=== PATIENT | male | born 1940 | race Caucasian/White ===

== ENCOUNTER → 2023-12-12 | Outpatient (CLI) | payer MEDICARE ==
--- NOTE | 2023-12-12 12:11 | FL ---
COMPARISON: NONE DATE OF EXAM: 12/12/2023 HISTORY: Dysphasia A number of thin and thick substances were ingested under the care of the department of speech pathol ogy. There is penetration and aspiration upon ingestion of thin barium. Cough reflex noted. Vallecul ar pooling and residuals noted. 2 minutes 1 second of fluoroscopy. No images submitted. IMPRESSION: 1. Penetration and aspiration thin barium.
== END | disposition home or self-care (01) ==
LOC: RADFLMAIN 10:19
PROVIDERS: ATTEND Internal Medicine Critical Care Medicine
DX: R13.12 Dysphagia, oropharyngeal phase (principal)
CPT/HCPCS: 74230

== ENCOUNTER 2024-02-06 23:33 | Inpatient (IN) | payer MEDICARE ==
--- NOTE | 2024-02-07 00:06 | ED ---
General Adult HPI - General Chief complaint: Weakness Stated complaint: Infection, UTI symptoms Time Seen by Provider: 02/07/24 00:03 Source: patient, EMS Mode of arrival: EMS Limitations: no limitations - History of Present Illness Initial comments: Ronaldo is a pleasant 83-year-old male who presents the ER today for evaluation of generalized weakness. Patient was seen by urology in office today they attempted a procedure but were unable to pass stool through his urethra so he is scheduled for the procedure under anesthesia in March. Patient states that he felt fine at the appointment but upon returning home he developed shaking chills was worried he had a fever and had overall generalized weakness. This prompted him to come to the hospital for evaluation. - Related Data Allergies Allergy/AdvReac Type Severity Reaction Status Date / Time No Known Allergies Allergy Verified 02/06/24 23:44 Review of Systems ROS Statement: Those systems with pertinent positive or pertinent negative responses have been documented in the HPI. ROS Other: All systems not noted in ROS Statement are negative. Past Medical History Past Medical History: No Reported History History of Any Multi-Drug Resistant Organisms: None Reported Past Surgical History: Orthopedic Surgery Past Psychological History: No Psychological Hx Reported Smoking Status: Former smoker Past Alcohol Use History: None Reported Past Drug Use History: None Reported General Exam - General Exam Comments Initial Comments: Physical Exam GENERAL: Patient is well-developed and well-nourished, patient appears acutely ill HENT: Normocephalic, Atraumatic. EYES: PERRL, EOMI PULMONARY: Unlabored respirations CARDIOVASCULAR: Regular, warm and well-perfused extremities ABDOMEN: Soft and nontender with normal bowel sounds. SKIN: Skin is clear with no lesions or rashes and otherwise unremarkable. : Deferred NEUROLOGIC: Patient is alert and oriented x3. Moving all extremities spontaneously MUSCULOSKELETAL: Normal extremities PSYCHIATRIC: Normal psychiatric evaluation. Limitations: no limitations Course Vital Signs 02/06/24 02/07/24 23:40 03:42 Temperature 98.2 F Pulse Rate 51 L 78 Respiratory 16 16 Rate Blood Pressure 116/61 105/49 O2 Sat by Pulse 95 92 L Oximetry EKG Findings - EKG Comments: EKG Findings:: EKG interpreted by me, EKG obtained due to hypokalemia, EKG obtained at 311 rate is 84 rhythm is sinus with PVCs noted, first-degree AV block with a SC of 206, QRS 131, QTc 466, no acute ST elevations or depressions no evidence of acute ischemia or infarction Medical Decision Making - Medical Decision Making Was pt. sent in by a medical professional or institution ([facility] Paul, [facility], urgent care, hospital, or snf...) When possible be specific @ -No Did you speak to anyone other than the patient for history (EMS, parent, family, police, friend...)? What history was obtained from this source @ -No Did you review nursing and triage notes (agree or disagree)? Why? @ -I reviewed and agree with nursing and triage notes Were old charts reviewed (outside hosp., previous admission, EMS record, old EKG, old radiological studies, urgent care reports/EKG's, snf records)? Report findings @ -No previous labs available for comparison Differential Diagnosis (chest pain, altered mental status, abdominal pain women, abdominal pain men, vaginal bleeding, weakness, fever, dyspnea, syncope, headache, dizziness, GI bleed, back pain, seizure, CVA, palpatations, mental health)? @ -Differential Weakness: Hypoglycemia, shock, sepsis, hyponatremia, anemia, infection, OH, ETOH, adverse medicine reaction, overdose, stroke, this is not meant to be an all-inclusive list. EKG interpreted by me (3pts min.). @ -As above X-rays interpreted by me (1pt min.). @ -None done CT interpreted by me (1pt min.). @ -None done U/S interpreted by me (1pt. min.). @ -None done What testing was considered but not performed or refused? (CT, X-rays, U/S, labs)? Why? @ -None What meds were considered but not given or refused? Why? @ -None Did you discuss the management of the patient with other professionals (professionals i.e. [facility] Paul, [employer], lab, RT, psych nurse, social science analyst, waste chopper, teacher, surveillance sensor officer, immigration case manager)? Give summary @ -No Was smoking cessation discussed for >3mins.? @ -No Was critical care preformed (if so, how long)? @ -No Were there social determinants of health that impacted care today? How? (Homelessness, low income, unemployed, alcoholism, drug addiction, transportation, low edu. Level, literacy, decrease access to med. care, [place] [facility], rehab)? @ -No Was there de-escalation of care discussed even if they declined (Discuss DNR or withdrawal of care, Hospice)? DNR status @ -Yes, confirmed DNR status What co-morbidities impacted this encounter? (DM, HTN, Smoking, COPD, CAD, Cancer, CVA, ARF, Chemo, Hep., AIDS, mental health diagnosis, sleep apnea, morbid obesity)? @ -None Was patient admitted / discharged? Hospital course, mention meds given and route, prescriptions, significant lab abnormalities, going to OR and other pertinent info. @ -Admit Patient was seen and evaluated, history was obtained from the patient. Elderly male is febrile feeling unwell generalized weakness. Labs were obtained and resulted with critical hyponatremia, hypokalemia. IV fluids and IV and oral potassium replacement were ordered. EKG was obtained there is some wide QRS but no other acute findings. Patient will remain on cardiac monitoring. Undiagnosed new problem with uncertain prognosis? @ -No Drug Therapy requiring intensive monitoring for toxicity (Heparin, Nitro, Insulin, Cardizem)? @ -IV potassium Were any procedures done? @ -No Diagnosis/symptom? @ -Hyponatremia, hypokalemia Acute, or Chronic, or Acute on Chronic? @ -Assumed to be acute Uncomplicated (without systemic symptoms) or Complicated (systemic symptoms)? @ -Default Side effects of treatment? @ -No Exacerbation, Progression, or Severe Exacerbation? @ -No Poses a threat to life or bodily function? How? (Chest pain, [place], OH, pneumonia, PE, COPD, DKA, ARF, appy, cholecystitis, CVA, Diverticulitis, Homicidal, Suicidal, threat to staff... and all critical care pts) @ -Potentially, hypokalemia can result in arrhythmia - Lab Data Result diagrams: 02/07/24 01:32 02/07/24 01:32 Lab Results 02/07/24 02/07/24 02/07/24 Range/Units 01:32 01:32 01:32 WBC 10.9 H (3.8-10.6) k/uL RBC 3.72 L (4.30-5.90) m/uL Hgb 11.7 L (13.0-17.5) gm/dL Hct 34.2 L (39.0-53.0) % MCV 91.8 (80.0-100.0) fL MCH 31.5 (25.0-35.0) pg MCHC 34.3 (31.0-37.0) g/dL RDW 12.9 (11.5-15.5) % Plt Count 151 (150-450) k/uL MPV 8.3 Neutrophils % 86 % Lymphocytes % 6 % Monocytes % 5 % Eosinophils % 2 % Basophils % 0 % Neutrophils # 9.4 H (1.3-7.7) k/uL Lymphocytes # 0.6 L (1.0-4.8) k/uL Monocytes # 0.5 (0-1.0) k/uL Eosinophils # 0.3 (0-0.7) k/uL Basophils # 0.0 (0-0.2) k/uL Sodium 127 L (137-145) mmol/L Potassium 2.8 L (3.5-5.1) mmol/L Chloride 97 L (98-107) mmol/L Carbon Dioxide 25 (22-30) mmol/L Anion Gap 5 mmol/L BUN 30 H (9-20) mg/dL Creatinine 0.41 L (0.66-1.25) mg/dL Est GFR (CKD-EPI)AfAm >90 (>60 ml/min/1.73 sqM) Est GFR (CKD-EPI)NonAf >90 (>60 ml/min/1.73 sqM) Glucose 93 (74-99) mg/dL Plasma Lactic Acid Taras 0.8 (0.7-2.0) mmol/L Calcium 8.2 L (8.4-10.2) mg/dL Total Bilirubin 0.5 (0.2-1.3) mg/dL AST 24 (17-59) U/L ALT 14 (4-49) U/L Alkaline Phosphatase 86 (38-126) U/L Total Protein 6.0 L (6.3-8.2) g/dL Albumin 3.5 (3.5-5.0) g/dL Urine Color Urine Appearance (Clear) Urine pH (5.0-8.0) Ur Specific [place] (1.001-1.035) Urine Protein (Negative) Urine Glucose (UA) (Negative) Urine Ketones (Negative) Urine Blood (Negative) Urine Nitrite (Negative) Urine Bilirubin (Negative) Urine Urobilinogen (<2.0) mg/dL Ur Leukocyte Esterase (Negative) Urine RBC (0-5) /hpf Urine WBC (0-5) /hpf Urine Bacteria (None) /hpf Urine Mucus (None) /hpf 02/07/24 Range/Units 02:00 WBC (3.8-10.6) k/uL RBC (4.30-5.90) m/uL Hgb (13.0-17.5) gm/dL Hct (39.0-53.0) % MCV (80.0-100.0) fL MCH (25.0-35.0) pg MCHC (31.0-37.0) g/dL RDW (11.5-15.5) % Plt Count (150-450) k/uL MPV Neutrophils % % Lymphocytes % % Monocytes % % Eosinophils % % Basophils % % Neutrophils # (1.3-7.7) k/uL Lymphocytes # (1.0-4.8) k/uL Monocytes # (0-1.0) k/uL Eosinophils # (0-0.7) k/uL Basophils # (0-0.2) k/uL Sodium (137-145) mmol/L Potassium (3.5-5.1) mmol/L Chloride (98-107) mmol/L Carbon Dioxide (22-30) mmol/L Anion Gap mmol/L BUN (9-20) mg/dL Creatinine (0.66-1.25) mg/dL Est GFR (CKD-EPI)AfAm (>60 ml/min/1.73 sqM) Est GFR (CKD-EPI)NonAf (>60 ml/min/1.73 sqM) Glucose (74-99) mg/dL Plasma Lactic Acid Taras (0.7-2.0) mmol/L Calcium (8.4-10.2) mg/dL Total Bilirubin (0.2-1.3) mg/dL AST (17-59) U/L ALT (4-49) U/L Alkaline Phosphatase (38-126) U/L Total Protein (6.3-8.2) g/dL Albumin (3.5-5.0) g/dL Urine Color Light Yellow Urine Appearance Clear (Clear) Urine pH 5.5 (5.0-8.0) Ur Specific [place] 1.021 (1.001-1.035) Urine Protein Negative (Negative) Urine Glucose (UA) Negative (Negative) Urine Ketones Negative (Negative) Urine Blood Moderate H (Negative) Urine Nitrite Negative (Negative) Urine Bilirubin Negative (Negative) Urine Urobilinogen <2.0 (<2.0) mg/dL Ur Leukocyte Esterase Moderate H (Negative) Urine RBC 85 H (0-5) /hpf Urine WBC 32 H (0-5) /hpf Urine Bacteria Many H (None) /hpf Urine Mucus Rare H (None) /hpf Disposition Clinical Impression: Hypokalemia, Hyponatremia, UTI (urinary tract infection) Disposition: ADMITTED IP TO THIS HOSP Condition: Serious Is patient prescribed a controlled substance at d/c from ED?: No Referrals: Kelvin Mcnally MD [Primary Care Provider] - 1-2 days
[2024-02-07] MEDS: SODIUM CHLORIDE 0.9% 500 ML 500 ML IV SCH (01:36)
[2024-02-07] MEDS: .ACETAMINOPHEN IV (PEDS) 1,000 MG in EMPTY BAG 1 BAG IVPB ONE (01:36)
[2024-02-07 01:43] LABS: Basophils % (A) 0 %; Eosinophils # (A) 0.3 k/uL (0-0.7); Eosinophils % (A) 2 %; HCT 34.2 % (39.0-53.0); HGB 11.7 gm/dL (13.0-17.5); Lymphocytes # (A) 0.6 k/uL (1.0-4.8); Lymphocytes % (A) 6 %; MCH 31.5 pg (25.0-35.0); MCHC 34.3 g/dL (31.0-37.0); MCV 91.8 fL (80.0-100.0); Mean Platelet Volume 8.3; Monocytes # (A) 0.5 k/uL (0-1.0); Monocytes % (A) 5 %; Neutrophils # (A) 9.4 k/uL (1.3-7.7); Neutrophils % (A) 86 %; Platelet Count 151 k/uL (150-450); RBC 3.72 m/uL (4.30-5.90); RDW 12.9 % (11.5-15.5); WBC 10.9 k/uL (3.8-10.6)
[2024-02-07 01:54] LABS: ALT 14 U/L (4-49); AST 24 U/L (17-59); African American GFR (CKD) >90 (>60 ml/min/1.73 sqM); Albumin 3.5 g/dL (3.5-5.0); Alkaline Phosphatase 86 U/L (38-126); Anion Gap 5 mmol/L; Blood Urea Nitrogen 30 mg/dL (9-20); Calcium 8.2 mg/dL (8.4-10.2); Carbon Dioxide 25 mmol/L (22-30); Chloride 97 mmol/L (98-107); Glucose 93 mg/dL (74-99); Non-African American GFR(CKD) >90 (>60 ml/min/1.73 sqM); Potassium 2.8 mmol/L (3.5-5.1); Sodium 127 mmol/L (137-145); Total Bilirubin 0.5 mg/dL (0.2-1.3)
[2024-02-07 02:23] LABS: Appearance,Urine Clear (Clear); Bacteria,Urine Many /hpf; Bilirubin,Urine Negative (Negative); Blood,Urine Moderate (Negative); Color,Urine Light Yellow; Glucose,Urine (UA) Negative (Negative); Ketones,Urine Negative (Negative); Leukocyte Esterase,Urine Moderate (Negative); Mucus,Urine Rare /hpf; Nitrite,Urine Negative (Negative); PH, Urine 5.5 (5.0-8.0); Protein,Urine Negative (Negative); RBC,Urine 85 /hpf (0-5); Specific Gravity,Urine 1.021 (1.001-1.035); Urobilinogen,Urine <2.0 mg/dL (<2.0); WBC,Urine 32 /hpf (0-5)
[2024-02-07] MEDS ORDERED: NALOXONE 0.4 MG/ML 1 ML VIAL IV PRN (02:34)
[2024-02-07] MEDS: POTASSIUM CHLORIDE ER 20 MEQ TAB.ER PO STA (03:11)
[2024-02-07] MEDS: POTASSIUM CHLORIDE 20 MEQ in WATER FOR INJECTION 1 100ML.BAG IVPB SCH (03:16)
[2024-02-07] MEDS: SODIUM CHLORIDE 0.9% 1,000 ML IV SCH (03:22)
[2024-02-07 09:58] LABS: African American GFR (CKD) >90 (>60 ml/min/1.73 sqM); Anion Gap 4 mmol/L; Blood Urea Nitrogen 23 mg/dL (9-20); Calcium 8.1 mg/dL (8.4-10.2); Carbon Dioxide 25 mmol/L (22-30); Chloride 101 mmol/L (98-107); Glucose 101 mg/dL (74-99); Non-African American GFR(CKD) >90 (>60 ml/min/1.73 sqM); Sodium 130 mmol/L (137-145)
[2024-02-07] MEDS ORDERED: CALCIUM CARBONATE 500 MG CHEWABLE PO PRN (10:06)
[2024-02-07] MEDS ORDERED: ALPRAZolam 0.25 MG TAB PO PRN (10:06)
[2024-02-07] MEDS ORDERED: MELATONIN 3 MG TABLET PO PRN (10:06)
[2024-02-07] MEDS ORDERED: LACTULOSE 20 GM/30 ML CUP PO PRN (10:06)
[2024-02-07] MEDS ORDERED: ONDANSETRON 4 MG/2 ML VIAL IVP PRN (10:06)
--- NOTE | 2024-02-07 10:40 | P.NPCON ---
History of Present Illness - Reason for Consult hyponatremia - History of Present Illness Reason for consultation: Electrolyte imbalance History of present illness: Patient is 83-year-old male seen in renal consultation for electrolyte imbalance. Patient states he went for a urologic procedure yesterday but the procedure was canceled and has been rescheduled later in the summer. Patient states the could not pass the scope through his penis so he will undergo the procedure under general anesthesia. Patient went home after the procedure and states he developed chills. Patient states he also felt that he had a high fever. Patient states that he went to the bathroom at night and his legs gave out and came to the hospital for further care. Patient states he follows with a dietitian and is maintained on a thickened diet to prevent aspiration. Sodium level on admission was 127 and potassium level 2.8. He is currently receiving IV fluids. Potassium level is normal and sodium level is up to 130. He denies chest pain or shortness of breath. No vomiting. Patient states he did have loose bowel movements yesterday but now resolved. He denies gross hematuria or dysuria. Afebrile this admission. Denies use of nonsteroidals. Denies family history of renal disease. Denies history of coronary artery disease. Denies history of diabetes. Vital signs are stable. General: No acute distress. HEENT: Head exam is unremarkable. LUNGS: No audible rhonchi or wheezes. HEART: Rate and Rhythm are regular. ABDOMEN: Nontender. EXTREMITITES: No edema. Past Medical History Past Medical History: GERD/Reflux, Hyperlipidemia, Hypertension History of Any Multi-Drug Resistant Organisms: None Reported Past Surgical History: Orthopedic Surgery Additional Past Surgical History / Comment(s): femur replaced with diana. Past Anesthesia/Blood Transfusion Reactions: No Reported Reaction Past Psychological History: No Psychological Hx Reported Smoking Status: Former smoker Past Alcohol Use History: None Reported Past Drug Use History: None Reported Medications and Allergies Home Medications Medication Instructions Recorded Confirmed Type Aspirin 81 mg PO DAILY 02/07/24 02/07/24 History Ciprofloxacin HCl [Cipro] 250 mg PO DIRECTED 02/07/24 02/07/24 History DULoxetine HCL [Cymbalta] 60 mg PO DAILY 02/07/24 02/07/24 History Famotidine [Pepcid] 20 mg PO BID 02/07/24 02/07/24 History Glucosamine-Chondroitin 750-600mg 1 tab PO DAILY 02/07/24 02/07/24 History Loratadine [Claritin] 10 mg PO DAILY 02/07/24 02/07/24 History Losartan/Hydrochlorothiazide 1 tab PO DAILY 02/07/24 02/07/24 History [Losartan-Hctz 100-25 mg Tab] Olopatadine HCl [Patanol 0.1%] 1 drop BOTH EYES BID 02/07/24 02/07/24 History Omeprazole 20 mg PO DAILY 02/07/24 02/07/24 History Simvastatin [Zocor] 20 mg PO DAILY 02/07/24 02/07/24 History Tamsulosin [Flomax] 0.4 mg PO DAILY 02/07/24 02/07/24 History Total Restore Gut Health Supplement 2 cap PO DAILY 02/07/24 02/07/24 History amLODIPine [Norvasc] 10 mg PO DAILY 02/07/24 02/07/24 History guaiFENesin [Mucinex] 1,200 mg PO BID 02/07/24 02/07/24 History Allergies Allergy/AdvReac Type Severity Reaction Status Date / Time No Known Allergies Allergy Verified 02/07/24 09:54 Physical Exam Vitals: Vital Signs Temp Pulse Pulse Resp BP BP Pulse Ox 02/07/24 06:59 97.9 F 84 16 138/68 96 02/07/24 05:34 97.4 F L 78 16 127/65 99 02/07/24 04:59 78 19 102/50 98 02/07/24 03:42 78 16 105/49 92 L 02/06/24 23:40 98.2 F 51 L 16 116/61 95 Intake and Output 02/06/24 02/07/24 02/07/24 22:59 06:59 14:59 Output Total 625 Balance -625 Output: Urine 625 Other: Voiding Method Toilet Toilet Urinal Urinal Diaper Diaper Weight 83.461 kg Results - Lab Results Most recent lab results Calcium 8.1 mg/dL (8.4-10.2) L 02/07/24 09:11 Magnesium 2.0 mg/dL (1.6-2.3) 02/07/24 09:11 02/07/24 01:32 02/07/24 09:11 Assessment and Plan Plan: Assessment: 1. Hypovolemic hyponatremia improved with IV hydration. Sodium level 130 today. 2. Hypokalemia from poor intake. Magnesium normal. Replaced. Better. 3. Benign hypertension. Controlled. Plan: Maintain IV fluids. Encouraged oral intake. Thank you for the consultation. I will continue to follow the patient with you during his hospital stay.
[2024-02-07] MEDS: DULoxetine HCL 60 MG CAPSULE.DR PO SCH (10:42)
[2024-02-07] MEDS: ATORVASTATIN 10 MG TAB PO SCH (10:42)
[2024-02-07] MEDS: LOSARTAN 50 MG TAB PO SCH (10:42)
[2024-02-07] MEDS: ASPIRIN 81 MG PO SCH (10:42)
[2024-02-07] MEDS: PANTOPRAZOLE 40 MG TABLET PO SCH (10:42)
[2024-02-07] MEDS: FAMOTIDINE 20 MG TAB PO SCH (10:42)
[2024-02-07] MEDS: TAMSULOSIN 0.4 MG CAP.ER.24H PO SCH (10:42)
[2024-02-07] MEDS: KETOTIFEN 0.025% OPHTH DROPS 5 ML BTL BOTH EYES SCH (12:52)
--- NOTE | 2024-02-07 19:52 | P.HPIM ---
History of Present Illness H&P Date: 02/07/24 Chief Complaint: Fever chills weakness This is a pleasant 83-year-old patient, follows with Dr. Kelvin Mcnally. Chronic stable medical conditions include GERD, hyperlipidemia, hypertension. Patient has a long history of urine being uncontrolled. Yesterday is gone down to see his urologist. Apparently patient is undergoing cystoscopy. But because of scar tissue really could not get through. Patient went home later. Feels feeling okay. In the evening started really shaking shivering fevers felt cold and very weak. To the point he required his to take him to the bathroom. He was so weak that he had to be laid down on the floor. Was unable to get up. Finally decided to come in. Patient was found to elevated white count. Low sodium. Admitted. Was given IV ceftriaxone. This morning patient does feel tired. Blood pressure activities on the lower side. Review of systems: GEN.: Tired EYES: None HEENT: None NECK: None RESPIRATORY: None CARDIOVASCULAR: None GASTROINTESTINAL: None GENITOURINARY: As above e MUSCULOSKELETAL: None LYMPHATICS: None HEMATOLOGICAL: At home uses a cane. When he goes outside sometimes uses a walker PSYCHIATRY: None INVESTIGATIONS, reviewed in the clinical context: February 07, 2024: Sodium 120 potassium 4 BUN 23 creatinine 0.38 February 06, 2024: White count 10.9 hemoglobin 9.7 platelets 151 sodium 127 potassium 2.8 BUN 30 creatinine 0.41 UA: Positive for blood leukoesterase RBC WBC bacteria many EKG tracing personally reviewed by me-normal sinus rhythm. Poor R wave progression. PVC. Nonspecific T wave changes. Assessment and plan: -Probable sepsis. From UTI Patient had attempted procedure for cystoscopy. But the catheter could not go past through his penis. Likely DVT started having fever chills very weak to the point patient not get up had to lie down on the floor. Was given IV ceftriaxone in the ER and IV fluids. Has elevated white count. -Acute UTI secondary to instrumentation/cystoscopy, outpatient procedure IV ceftriaxone. 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 Sometimes walker. -Depression Cymbalta -GERD Omeprazole -Hyperlipidemia Zocor 20 mg -Essential hypertension. Relatively patient's blood pressure running on the lower side. Because of infection. Patient's amlodipine has been held. Will use Cozaar at a reduced dose. Hold hydrochlorothiazide -Primary osteoarthritis Tylenol as needed -DNR Care was discussed with the patient. Questions answered. Past Medical History Past Medical History: GERD/Reflux, Hyperlipidemia, Hypertension History of Any Multi-Drug Resistant Organisms: None Reported Past Surgical History: Orthopedic Surgery Additional Past Surgical History / Comment(s): femur replaced with diana. Past Anesthesia/Blood Transfusion Reactions: No Reported Reaction Past Psychological History: No Psychological Hx Reported Smoking Status: Former smoker Past Alcohol Use History: None Reported Past Drug Use History: None Reported Medications and Allergies Home Medications Medication Instructions Recorded Confirmed Type Aspirin 81 mg PO DAILY 02/07/24 02/07/24 History Ciprofloxacin HCl [Cipro] 250 mg PO DIRECTED 02/07/24 02/07/24 History DULoxetine HCL [Cymbalta] 60 mg PO DAILY 02/07/24 02/07/24 History Famotidine [Pepcid] 20 mg PO BID 02/07/24 02/07/24 History Glucosamine-Chondroitin 750-600mg 1 tab PO DAILY 02/07/24 02/07/24 History Loratadine [Claritin] 10 mg PO DAILY 02/07/24 02/07/24 History Losartan/Hydrochlorothiazide 1 tab PO DAILY 02/07/24 02/07/24 History [Losartan-Hctz 100-25 mg Tab] Olopatadine HCl [Patanol 0.1%] 1 drop BOTH EYES BID 02/07/24 02/07/24 History Omeprazole 20 mg PO DAILY 02/07/24 02/07/24 History Simvastatin [Zocor] 20 mg PO DAILY 02/07/24 02/07/24 History Tamsulosin [Flomax] 0.4 mg PO DAILY 02/07/24 02/07/24 History Total Restore Gut Health Supplement 2 cap PO DAILY 02/07/24 02/07/24 History amLODIPine [Norvasc] 10 mg PO DAILY 02/07/24 02/07/24 History guaiFENesin [Mucinex] 1,200 mg PO BID 02/07/24 02/07/24 History Allergies Allergy/AdvReac Type Severity Reaction Status Date / Time No Known Allergies Allergy Verified 02/07/24 09:54 Physical Exam Vitals: Vital Signs Temp Pulse Pulse Resp BP BP Pulse Ox 02/07/24 06:59 97.9 F 84 16 138/68 96 02/07/24 05:34 97.4 F L 78 16 127/65 99 02/07/24 04:59 78 19 102/50 98 02/07/24 03:42 78 16 105/49 92 L 02/06/24 23:40 98.2 F 51 L 16 116/61 95 Intake and Output 02/06/24 02/07/24 02/07/24 22:59 06:59 14:59 Output Total 200 Balance -200 Output: Urine 200 Other: Voiding Method Toilet Urinal Diaper Weight 83.461 kg Results CBC & Chem 7: 02/07/24 01:32 02/07/24 09:11 Labs: Abnormal Lab Results - Last 24 Hours (Table) 02/07/24 02/07/24 02/07/24 Range/Units 01:32 01:32 02:00 WBC 10.9 H (3.8-10.6) k/uL RBC 3.72 L (4.30-5.90) m/uL Hgb 11.7 L (13.0-17.5) gm/dL Hct 34.2 L (39.0-53.0) % Neutrophils # 9.4 H (1.3-7.7) k/uL Lymphocytes # 0.6 L (1.0-4.8) k/uL Sodium 127 L (137-145) mmol/L Potassium 2.8 L (3.5-5.1) mmol/L Chloride 97 L (98-107) mmol/L BUN 30 H (9-20) mg/dL Creatinine 0.41 L (0.66-1.25) mg/dL Calcium 8.2 L (8.4-10.2) mg/dL Total Protein 6.0 L (6.3-8.2) g/dL Urine Blood Moderate H (Negative) Ur Leukocyte Esterase Moderate H (Negative) Urine RBC 85 H (0-5) /hpf Urine WBC 32 H (0-5) /hpf Urine Bacteria Many H (None) /hpf Urine Mucus Rare H (None) /hpf Thrombosis Risk Factor Assmnt - Choose All That Apply Any of the Below Risk Factors Present?: No Other Risk Factors: Yes Each Risk Factor Represents 3 Points: Age 75 years or older Other congenital or acquired thrombophilia - If yes, enter type in comment: No Thrombosis Risk Factor Assessment Total Risk Factor Score: 3 Thrombosis Risk Factor Assessment Level: Moderate Risk
[2024-02-07] MEDS: LACTATED RINGERS 1,000 ML IV SCH (21:57)
[2024-02-08 07:37] LABS: Basophils % (A) 0 %; Eosinophils # (A) 0.3 k/uL (0-0.7); Eosinophils % (A) 5 %; HCT 35.9 % (39.0-53.0); HGB 11.5 gm/dL (13.0-17.5); Lymphocytes # (A) 1.3 k/uL (1.0-4.8); Lymphocytes % (A) 19 %; MCH 30.4 pg (25.0-35.0); MCV 94.9 fL (80.0-100.0); Mean Platelet Volume 8.3; Monocytes # (A) 0.5 k/uL (0-1.0); Monocytes % (A) 7 %; Neutrophils # (A) 4.5 k/uL (1.3-7.7); Neutrophils % (A) 66 %; Platelet Count 151 k/uL (150-450); RBC 3.78 m/uL (4.30-5.90); RDW 12.9 % (11.5-15.5); WBC 6.9 k/uL (3.8-10.6)
[2024-02-08 08:06] LABS: ALT 13 U/L (4-49); AST 26 U/L (17-59); African American GFR (CKD) >90 (>60 ml/min/1.73 sqM); Albumin 3.2 g/dL (3.5-5.0); Albumin/Globulin Ratio 1.2; Alkaline Phosphatase 58 U/L (38-126); Anion Gap 1 mmol/L; Blood Urea Nitrogen 12 mg/dL (9-20); Calcium 8.2 mg/dL (8.4-10.2); Carbon Dioxide 29 mmol/L (22-30); Chloride 99 mmol/L (98-107); Globulin 2.6 g/dL; Glucose 84 mg/dL (74-99); Non-African American GFR(CKD) >90 (>60 ml/min/1.73 sqM); Potassium 4.3 mmol/L (3.5-5.1); Sodium 129 mmol/L (137-145); Total Bilirubin 0.4 mg/dL (0.2-1.3); Total Protein 5.8 g/dL (6.3-8.2)
--- NOTE | 2024-02-08 11:55 | P.PN ---
Subjective Patient is seen in follow-up for electrolyte imbalance. Sodium level 129 potassium level normal. Tolerating oral intake. No vomiting. Vital signs are stable. General: No acute distress. HEENT: Head exam is unremarkable. LUNGS: No audible rhonchi or wheezes. HEART: Rate and Rhythm are regular. ABDOMEN: Nontender. EXTREMITITES: No edema. Objective - Vital Signs Vital signs: Vital Signs Temp 98.0 F 02/08/24 07:46 Pulse 68 02/08/24 07:46 Resp 17 02/08/24 07:46 BP 144/68 02/08/24 07:46 Pulse Ox 95 02/08/24 07:46 FiO2 Intake & Output 02/07/24 02/08/24 02/08/24 18:59 06:59 18:59 Intake Total 1460 Output Total 1050 1300 350 Balance 410 -1300 -350 Intake: Intake, IV Titration 1100 Amount Potassium Chloride 20 meq 200 In Water For Injection 1 100ml.bag @ 50 mls/hr IVPB Q2H ISMAEL Rx#: [id number] Sodium Chloride 0.9% 1, 900 000 ml @ 75 mls/hr IV . [id number] ISMAEL Rx#:[id number] Oral 360 Output: Urine 1050 1300 350 Other: Voiding Method Toilet Toilet Urinal Urinal Urinal Diaper Diaper Diaper # Voids 3 1 # Bowel Movements 1 - Labs CBC & Chem 7: 02/08/24 06:52 02/08/24 06:52 Labs: Abnormal Lab Results - Last 24 Hours (Table) 02/08/24 02/08/24 Range/Units 06:52 06:52 RBC 3.78 L (4.30-5.90) m/uL Hgb 11.5 L (13.0-17.5) gm/dL Hct 35.9 L (39.0-53.0) % Sodium 129 L (137-145) mmol/L Creatinine 0.34 L (0.66-1.25) mg/dL Calcium 8.2 L (8.4-10.2) mg/dL Total Protein 5.8 L (6.3-8.2) g/dL Albumin 3.2 L (3.5-5.0) g/dL Microbiology - Last 24 Hours (Table) 02/07/24 02:00 Urine Culture - Preliminary Urine,Voided Gram Neg Bacilli 02/07/24 00:55 Blood Culture Gram Stain - Preliminary Blood Blood Culture - Preliminary Molecular ID Assessment and Plan Plan: Assessment: 1. Hypovolemic hyponatremia improved with IV hydration. Sodium level fairly stable at 129. 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 2. Hypokalemia from poor intake. Magnesium normal. Replaced. Better. 3. Benign hypertension. Stable. 4. Gram-negative UTI and bacteremia on IV antibiotics. Plan: Hep-Lock IV fluids. Encouraged oral intake. Maintain fluid restriction. Sodium chloride tab 1 dose today. Check serum and urine osmolality, urine sodium level and TSH. Consider infectious disease evaluation.
[2024-02-08] MEDS: SODIUM CHLORIDE TAB 1 GM TAB PO STA (12:47)
[2024-02-08 14:55] LABS: Magnesium 1.9 mg/dL (1.6-2.3)
--- NOTE | 2024-02-08 16:04 | P.PN ---
Progress Note - Text Progress Note Date: 02/08/24 Chief Complaint: Fever chills weakness This is a pleasant 83-year-old patient, follows with Dr. Kelvin Mcnally. Chronic stable medical conditions include GERD, hyperlipidemia, hypertension. Patient has a long history of urine being uncontrolled. Yesterday is gone down to see his urologist. Apparently patient is undergoing cystoscopy. But because of scar tissue really could not get through. Patient went home later. Feels feeling okay. In the evening started really shaking shivering fevers felt cold and very weak. To the point he required his to take him to the bathroom. He was so weak that he had to be laid down on the floor. Was unable to get up. Finally decided to come in. Patient was found to elevated white count. Low sodium. Admitted. Was given IV ceftriaxone. This morning patient does feel tired. Blood pressure activities on the lower side. February 08, 2024: Feeling better. No fever no chills. Eating better. Blood blood culture and urine have come back to be positive. Blood pressure better. Continue with IV ceftriaxone. Active Medications Acetaminophen (Acetaminophen Tab 325 Mg Tab) 650 mg PO Q6HR PRN PRN Reason: Mild Pain or Fever > 100.5 Alprazolam (Alprazolam 0.25 Mg Tab) 0.25 mg PO Q6HR PRN PRN Reason: Anxiety Aspirin (Aspirin 81 Mg) 81 mg PO DAILY [facility] Last Admin: 02/08/24 09:16 Dose: 81 mg Atorvastatin Calcium (Atorvastatin 10 Mg Tab) 10 mg PO DAILY [facility] Last Admin: 02/08/24 09:16 Dose: 10 mg Calcium Carbonate/Glycine (Calcium Carbonate 500 Mg Chewable) 1,000 mg PO Q4HR PRN PRN Reason: Dyspepsia Duloxetine HCl (Duloxetine Hcl 60 Mg Capsule.) 60 mg PO DAILY [facility] Last Admin: 02/08/24 09:16 Dose: 60 mg Famotidine (Famotidine 20 Mg Tab) 20 mg PO BID [facility] Last Admin: 02/08/24 09:16 Dose: 20 mg Ceftriaxone Sodium 2 gm/ (Sodium Chloride) 50 mls @ 100 mls/hr IVPB Q24HR [facility] Last Admin: 02/08/24 09:16 Dose: 100 mls/hr Ketotifen Fumarate (Ketotifen 0.025% Ophth Drops 5 Ml Btl) 1 drops BOTH EYES BID@1100,1900 [facility] Last Admin: 02/08/24 12:41 Dose: 1 drops Lactulose (Lactulose 20 Gm/30 Ml Cup) 20 gm PO DAILY PRN PRN Reason: Constipation Losartan Potassium (Losartan 50 Mg Tab) 50 mg PO DAILY [facility] Last Admin: 02/08/24 09:16 Dose: 50 mg Melatonin (Melatonin 3 Mg Tablet) 3 mg PO HS PRN PRN Reason: Insomnia Naloxone HCl (Naloxone 0.4 Mg/Ml 1 Ml Vial) 0.2 mg IV Q2M PRN PRN Reason: Opioid Reversal Ondansetron HCl (Ondansetron 4 Mg/2 Ml Vial) 4 mg IVP Q8HR PRN PRN Reason: Nausea And Vomiting Pantoprazole Sodium (Pantoprazole 40 Mg Tablet) 40 mg PO DAILY [facility] Last Admin: 02/08/24 09:16 Dose: 40 mg Tamsulosin HCl (Tamsulosin 0.4 Mg Cap.Er.24h) 0.4 mg PO DAILY [facility] Last Admin: 02/08/24 09:16 Dose: 0.4 mg Social history: No smoking. No alcohol. Lives with his Lei. At [employer] [place]. Does use a cane at home. When he goes outside he does use a walker's. Physical examination: VITAL SIGNS: 97.8, 69, 17, 147/69, 95% room air GENERAL: Appears clammy, comfortable EYES: Pupils equal. Conjunctiva obdulio l. HEENT: External appearance of nose and ears normal, oral cavity grossly normal. NECK: JVD not raised; masses not palpable. HEART: First and second heart sounds are normal; no edema. LUNGS: Respiratory rate normal; clear to auscultation. ABDOMEN: Soft, nontender, liver spleen not palpable, no masses palpable. PSYCH: Alert and oriented x3; mood and affect obdulio l. MUSCULOSKELETAL:No Clubbing/cyanosis;muscles-grossly intact INVESTIGATIONS, reviewed in the clinical context: Urine culture [February 06] gram-negative bacilli Blood culture [February 06] positive for gram-negative bacilli February 08, 2024: White count 6.9 hemoglobin 9.5 sodium 129 potassium 4.3 creatinine 0.34 February 07, 2024: Sodium 120 potassium 4 BUN 23 creatinine 0.38 February 06, 2024: White count 10.9 hemoglobin 9.7 platelets 151 sodium 127 potassium 2.8 BUN 30 creatinine 0.41 UA: Positive for blood leukoesterase RBC WBC bacteria many EKG tracing personally reviewed by me-normal sinus rhythm. Poor R wave progression. PVC. Nonspecific T wave changes. Assessment and plan: -Sepsis. From UTI Blood culture positive for gram-negative bacilli Patient had attempted procedure for cystoscopy. But the catheter could not go past through his penis. Likely DVT started having fever chills very weak to the point patient not get up had to lie down on the floor. Was given IV ceftriaxone in the ER and IV fluids. Has elevated white count. -Acute UTI secondary to instrumentation/cystoscopy, outpatient procedure, from gram-negative bacilli IV ceftriaxone. 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 Sometimes walker. -Depression Cymbalta -GERD Omeprazole -Hyperlipidemia Zocor 20 mg -Essential hypertension. Relatively patient's blood pressure running on the lower side. Because of infection. Patient's amlodipine has been held. Will use Cozaar at a reduced dose. Hold hydrochlorothiazide -Primary osteoarthritis Tylenol as needed -DNR IV fluids discontinued by nephrology. Continue IV ceftriaxone. Follow labs. Repeat blood cultures in the morning Past Medical History Past Medical History: GERD/Reflux, Hyperlipidemia, Hypertension History of Any Multi-Drug Resistant Organisms: None Reported Past Surgical History: Orthopedic Surgery Additional Past Surgical History / Comment(s): femur replaced with diana. Past Anesthesia/Blood Transfusion Reactions: No Reported Reaction Past Psychological History: No Psychological Hx Reported Smoking Status: Former smoker Past Alcohol Use History: None Reported Past Drug Use History: None Reported
--- NOTE | 2024-02-08 23:35 | P.CONS ---
History of Present Illness - Reason for Consult Consult date: 02/08/24 - History of Present Illness Patient is a 83-year-old male with a past medical history significant for hypertension hyperlipidemia reflux presenting to the hospital for evaluation of generalized weakness also have generalized shaking chills and fever for the patient present to the hospital patient denies having any headache or URI symptoms no chest pain shortness of breath or cough patient denies having any na usea vomiting no abdominal pain did have some difficulty with urination and burning but no hematuria or flank pain patient on presentation to the hospital was afebrile and no fever have been recorded subsequently patient was not hypotensive or hypoxic did have white count of 10.9 with a left shift creatinine was 0.41 electrolytes potassium was slightly low ultrasound normal normal liver enzymes normal urine has been positive patient blood cultures came back positive with gram-negative bacilli prompting decision consultation Past Medical History Past Medical History: GERD/Reflux, Hyperlipidemia, Hypertension History of Any Multi-Drug Resistant Organisms: None Reported Past Surgical History: Orthopedic Surgery Additional Past Surgical History / Comment(s): femur replaced with diana. Past Anesthesia/Blood Transfusion Reactions: No Reported Reaction Past Psychological History: No Psychological Hx Reported Smoking Status: Former smoker Past Alcohol Use History: None Reported Past Drug Use History: None Reported Medications and Allergies Home Medications Medication Instructions Recorded Confirmed Type Aspirin 81 mg PO DAILY 02/07/24 02/07/24 History Ciprofloxacin HCl [Cipro] 250 mg PO DIRECTED 02/07/24 02/07/24 History DULoxetine HCL [Cymbalta] 60 mg PO DAILY 02/07/24 02/07/24 History Famotidine [Pepcid] 20 mg PO BID 02/07/24 02/07/24 History Glucosamine-Chondroitin 750-600mg 1 tab PO DAILY 02/07/24 02/07/24 History Loratadine [Claritin] 10 mg PO DAILY 02/07/24 02/07/24 History Losartan/Hydrochlorothiazide 1 tab PO DAILY 02/07/24 02/07/24 History [Losartan-Hctz 100-25 mg Tab] Olopatadine HCl [Patanol 0.1%] 1 drop BOTH EYES BID 02/07/24 02/07/24 History Omeprazole 20 mg PO DAILY 02/07/24 02/07/24 History Simvastatin [Zocor] 20 mg PO DAILY 02/07/24 02/07/24 History Tamsulosin [Flomax] 0.4 mg PO DAILY 02/07/24 02/07/24 History Total Restore Gut Health Supplement 2 cap PO DAILY 02/07/24 02/07/24 History amLODIPine [Norvasc] 10 mg PO DAILY 02/07/24 02/07/24 History guaiFENesin [Mucinex] 1,200 mg PO BID 02/07/24 02/07/24 History Allergies Allergy/AdvReac Type Severity Reaction Status Date / Time No Known Allergies Allergy Verified 02/07/24 09:54 Physical Exam Vitals: Vital Signs Temp Pulse Resp BP BP Pulse Ox 02/08/24 12:24 97.8 F 69 17 147/69 95 02/08/24 07:46 98.0 F 68 17 144/68 95 02/08/24 01:46 98.2 F 71 17 133/69 96 02/07/24 19:18 99.2 F 86 16 112/56 93 L Intake and Output 02/07/24 02/08/24 02/08/24 22:59 06:59 14:59 Intake Total 1460 Output Total 1300 1150 Balance 1460 -1300 -1150 Intake: Intake, IV Titration 1100 Amount Potassium Chloride 20 meq 200 In Water For Injection 1 100ml.bag @ 50 mls/hr IVPB Q2H [facility] Rx#: [id number] Sodium Chloride 0.9% 1, 900 000 ml @ 75 mls/hr IV . [id number] [facility] Rx#:[id number] Oral 360 Output: Urine 1300 1150 Other: Voiding Method Toilet Urinal Urinal Diaper Diaper # Voids 3 1 # Bowel Movements 1 Results CBC & Chem 7: 02/08/24 06:52 02/08/24 06:52 Labs: Abnormal Lab Results - Last 24 Hours (Table) 02/08/24 02/08/24 Range/Units 06:52 06:52 RBC 3.78 L (4.30-5.90) m/uL Hgb 11.5 L (13.0-17.5) gm/dL Hct 35.9 L (39.0-53.0) % Sodium 129 L (137-145) mmol/L Creatinine 0.34 L (0.66-1.25) mg/dL Calcium 8.2 L (8.4-10.2) mg/dL Total Protein 5.8 L (6.3-8.2) g/dL Albumin 3.2 L (3.5-5.0) g/dL Microbiology - Last 24 Hours (Table) 02/07/24 01:10 Blood Culture - Preliminary Blood 02/07/24 02:00 Urine Culture - Preliminary Urine,Voided Gram Neg Bacilli 02/07/24 00:55 Blood Culture Gram Stain - Preliminary Blood Blood Culture - Preliminary Molecular ID Assessment and Plan Plan: 1patient presented to hospital with weakness rigors and chills did have urinary symptoms concerning for symptomatic kidney tract infection likely from enteric gram-negative pathogen. 2patient with gram-negative bacteremia source is likely urinary will need to rule out obstructive uropathy on an abscess. 3we will check an ultrasound of the kidney and bladder area. 4Rocephin 2 g daily while waiting for the culture to finalize. We will follow on clinical condition and cultures to further adjust medication if needed Thank you for this consultation we will follow the patient along with you Dictation was produced using [employer] dictation software. please excuse any grammatical, word or spelling errors. Time with Patient: Greater than 30
[2024-02-09 07:02] LABS: Basophils % (A) 1 %; Eosinophils # (A) 0.5 k/uL (0-0.7); Eosinophils % (A) 8 %; HCT 35.5 % (39.0-53.0); HGB 11.6 gm/dL (13.0-17.5); Lymphocytes % (A) 30 %; MCH 30.8 pg (25.0-35.0); MCHC 32.6 g/dL (31.0-37.0); MCV 94.6 fL (80.0-100.0); Mean Platelet Volume 8.2; Monocytes # (A) 0.5 k/uL (0-1.0); Monocytes % (A) 8 %; Neutrophils # (A) 3.4 k/uL (1.3-7.7); Neutrophils % (A) 50 %; Platelet Count 153 k/uL (150-450); RBC 3.75 m/uL (4.30-5.90); RDW 12.8 % (11.5-15.5); WBC 6.8 k/uL (3.8-10.6)
[2024-02-09 09:33] LABS: BUN/Creat Ratio 28.25 Ratio (12.00-20.00); Blood Urea Nitrogen 11.3 mg/dL (9.0-27.0); Calcium 8.6 mg/dL (8.7-10.3); Carbon Dioxide 25.8 mmol/L (21.6-31.8); Chloride 93 mmol/L (96-109); Glucose 106 mg/dL (70-110); Magnesium 2.1 mg/dL (1.5-2.4); Potassium 4.3 mmol/L (3.5-5.5); Sodium 129 mmol/L (135-145)
--- NOTE | 2024-02-09 09:39 | US ---
EXAMINATION TYPE: US kidneys/renal and bladder DATE OF EXAM: 02/09/2024 COMPARISON: NONE CLINICAL INDICATION: Male, 83 years old with history of uti and bacteremia; UTI EXAM MEASUREMENTS: Right Kidney: 10.5 x 4.9 x 4.8 cm Left Kidney: 11.9 x 5.7 x 4.5 cm Right Kidney: No hydronephrosis or masses seen Left Kidney: No hydronephrosis or masses seen Bladder: wnl Bilateral Jets seen: Yes IMPRESSION: 1. No acute ultrasound abnormality renal ultrasound
--- NOTE | 2024-02-09 11:51 | P.PN ---
Subjective Patient is seen in follow-up for electrolyte imbalance. Sodium level stable at 129 and potassium level normal. Tolerating oral intake. No vomiting. Vital signs are stable. General: No acute distress. HEENT: Head exam is unremarkable. LUNGS: No audible rhonchi or wheezes. HEART: Rate and Rhythm are regular. ABDOMEN: Nontender. EXTREMITITES: No edema. Objective - Vital Signs Vital signs: Vital Signs Temp 97.9 F 02/09/24 07:52 Pulse 61 02/09/24 07:52 Resp 16 02/09/24 07:52 BP 175/82 02/09/24 07:52 Pulse Ox 97 02/09/24 07:52 FiO2 Intake & Output 02/08/24 02/09/24 02/09/24 18:59 06:59 18:59 Intake Total 1620 Output Total 1375 1050 400 Balance 245 -1050 -400 Intake: Oral 1620 Output: Urine 1375 1050 400 Other: Voiding Method Urinal Urinal Urinal Diaper Diaper Diaper # Voids 1 0 1 # Bowel Movements 1 0 - Labs CBC & Chem 7: 02/09/24 06:46 02/09/24 06:46 Labs: Abnormal Lab Results - Last 24 Hours (Table) 02/08/24 02/09/24 02/09/24 Range/Units 13:07 06:46 06:46 RBC 3.75 L (4.30-5.90) m/uL Hgb 11.6 L (13.0-17.5) gm/dL Hct 35.5 L (39.0-53.0) % Sodium 129 L (135-145) mmol/L Chloride 93 L (96-109) mmol/L Creatinine 0.4 L (0.6-1.5) mg/dL BUN/Creatinine Ratio 28.25 H (12.00-20.00) Ratio Calcium 8.6 L (8.7-10.3) mg/dL Urine Osmolality 287 L (400-1100) mOsm/kg Microbiology - Last 24 Hours (Table) 02/07/24 01:10 Blood Culture - Preliminary Blood 02/07/24 02:00 Urine Culture - Preliminary Urine,Voided Gram Neg Bacilli Assessment and Plan Plan: Assessment: 1. Hypovolemic hyponatremia improved with IV hydration. Sodium level stable at 129. 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 Urine sodium 102 and urine osmolality 287. TSH normal. 2. Hypokalemia from poor intake. Magnesium normal. Replaced. Better. 3. Benign hypertension. Stable. 4. Gram-negative UTI and bacteremia on IV antibiotics. Kidney ultrasound normal. Plan: Off IV fluids. Encouraged oral intake. Maintain fluid restriction. Repeat sodium chloride tab 1 dose today.
[2024-02-09] MEDS: SODIUM CHLORIDE TAB 1 GM TAB PO STA (12:56)
--- NOTE | 2024-02-09 17:01 | P.PN ---
Progress Note - Text Progress Note Date: 02/09/24 Chief Complaint: Fever chills weakness This is a pleasant 83-year-old patient, follows with Dr. Kelvin Mcnally. Chronic stable medical conditions include GERD, hyperlipidemia, hypertension. Patient has a long history of urine being uncontrolled. Yesterday is gone down to see his urologist. Apparently patient is undergoing cystoscopy. But because of scar tissue really could not get through. Patient went home later. Feels feeling okay. In the evening started really shaking shivering fevers felt cold and very weak. To the point he required his to take him to the bathroom. He was so weak that he had to be laid down on the floor. Was unable to get up. Finally decided to come in. Patient was found to elevated white count. Low sodium. Admitted. Was given IV ceftriaxone. This morning patient does feel tired. Blood pressure activities on the lower side. February 08, 2024: Feeling better. No fever no chills. Eating better. blood culture and urine have come back to be positive. Blood pressure better. Continue with IV ceftriaxone. February 09, 2024: Up in a recliner. Cultures pending. Receiving IV ceftriaxone. Eating fair. Repeat blood cultures were done this morning. Blood pressure running high. Increase Cozaar to 50 mg twice daily. Another tablet of sodium chloride given by nephrology. Add amlodipine 5 mg nightly Active Medications Acetaminophen (Acetaminophen Tab 325 Mg Tab) 650 mg PO Q6HR PRN PRN Reason: Mild Pain or Fever > 100.5 Alprazolam (Alprazolam 0.25 Mg Tab) 0.25 mg PO Q6HR PRN PRN Reason: Anxiety Aspirin (Aspirin 81 Mg) 81 mg PO DAILY [facility] Last Admin: 02/09/24 09:03 Dose: 81 mg Atorvastatin Calcium (Atorvastatin 10 Mg Tab) 10 mg PO DAILY [facility] Last Admin: 02/09/24 09:03 Dose: 10 mg Calcium Carbonate/Glycine (Calcium Carbonate 500 Mg Chewable) 1,000 mg PO Q4HR PRN PRN Reason: Dyspepsia Duloxetine HCl (Duloxetine Hcl 60 Mg Capsule.) 60 mg PO DAILY [facility] Last Admin: 02/09/24 09:03 Dose: 60 mg Famotidine (Famotidine 20 Mg Tab) 20 mg PO BID [facility] Last Admin: 02/09/24 09:04 Dose: 20 mg Ceftriaxone Sodium 2 gm/ (Sodium Chloride) 50 mls @ 100 mls/hr IVPB Q24HR [facility] Last Admin: 02/09/24 09:04 Dose: 100 mls/hr Ketotifen Fumarate (Ketotifen 0.025% Ophth Drops 5 Ml Btl) 1 drops BOTH EYES BID@1100,1900 [facility] Last Admin: 02/09/24 12:56 Dose: 1 drops Lactulose (Lactulose 20 Gm/30 Ml Cup) 20 gm PO DAILY PRN PRN Reason: Constipation Losartan Potassium (Losartan 50 Mg Tab) 50 mg PO DAILY [facility] Last Admin: 02/09/24 09:03 Dose: 50 mg Melatonin (Melatonin 3 Mg Tablet) 3 mg PO HS PRN PRN Reason: Insomnia Naloxone HCl (Naloxone 0.4 Mg/Ml 1 Ml Vial) 0.2 mg IV Q2M PRN PRN Reason: Opioid Reversal Ondansetron HCl (Ondansetron 4 Mg/2 Ml Vial) 4 mg IVP Q8HR PRN PRN Reason: Nausea And Vomiting Pantoprazole Sodium (Pantoprazole 40 Mg Tablet) 40 mg PO DAILY [facility] Last Admin: 02/09/24 09:04 Dose: 40 mg Tamsulosin HCl (Tamsulosin 0.4 Mg Cap.Er.24h) 0.4 mg PO DAILY [facility] Last Admin: 02/09/24 09:03 Dose: 0.4 mg Social history: No smoking. No alcohol. Lives with his Lei. At [employer]. Does use a cane at home. When he goes outside he does use a walker's. Physical examination: VITAL SIGNS: 98, 59, 18, 169 x 75, 96% room air GENERAL: Sitting up in recliner, comfortable EYES: Pupils equal. Conjunctiva obdulio l. HEENT: External appearance of nose and ears normal, oral cavity grossly normal. NECK: JVD not raised; masses not palpable. HEART: First and second heart sounds are normal; no edema. LUNGS: Respiratory rate normal; clear to auscultation. ABDOMEN: Soft, nontender, liver spleen not palpable, no masses palpable. PSYCH: Alert and oriented x3; mood and affect obdulio l. MUSCULOSKELETAL:No Clubbing/cyanosis;muscles-grossly intact INVESTIGATIONS, reviewed in the clinical context: February 08: White count 6.8 hemoglobin 11.6 platelets 153 sodium 129 potassium 4.3 creatinine 0.4 Urine culture [February 06] gram-negative bacilli Blood culture [February 06] positive for gram-negative bacilli February 08, 2024: White count 6.9 hemoglobin 9.5 sodium 129 potassium 4.3 creatinine 0.34 February 07, 2024: Sodium 120 potassium 4 BUN 23 creatinine 0.38 February 06, 2024: White count 10.9 hemoglobin 9.7 platelets 151 sodium 127 potassium 2.8 BUN 30 creatinine 0.41 UA: Positive for blood leukoesterase RBC WBC bacteria many EKG tracing personally reviewed by me-normal sinus rhythm. Poor R wave progression. PVC. Nonspecific T wave changes. Assessment and plan: -Sepsis. From UTI Blood culture positive for gram-negative bacilli Patient had attempted procedure for cystoscopy. But the catheter could not go past through his penis. Likely DVT started having fever chills very weak to the point patient not get up had to lie down on the floor. Was given IV ceftriaxone in the ER and IV fluids. Has elevated white count. Repeat blood cultures ordered today February 08 -Acute UTI secondary to instrumentation/cystoscopy, outpatient procedure, from gram-negative bacilli IV ceftriaxone. -Hyponatremia, with hypotension Received IV fluids. 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 Sometimes walker. -Depression Cymbalta -GERD Omeprazole -Hyperlipidemia Zocor 20 mg -Essential hypertension. Initially blood pressure was low. Increase Cozaar to 100 mg daily. Add amlodipine 5 mg nightly -Primary osteoarthritis Tylenol as needed -DNR Increased dose of Cozaar and add amlodipine 5 mg daily. Pending cultures. Discussed with patient. Increase activity as tolerated. Past Medical History Past Medical History: GERD/Reflux, Hyperlipidemia, Hypertension History of Any Multi-Drug Resistant Organisms: None Reported Past Surgical History: Orthopedic Surgery Additional Past Surgical History / Comment(s): femur replaced with diana. Past Anesthesia/Blood Transfusion Reactions: No Reported Reaction Past Psychological History: No Psychological Hx Reported Smoking Status: Former smoker Past Alcohol Use History: None Reported Past Drug Use History: None Reported
[2024-02-09] MEDS: LOSARTAN 50 MG TAB PO STA (18:22)
[2024-02-09] MEDS: amLODIPine 5 MG TAB PO SCH (20:14)
[2024-02-09] MEDS ORDERED: LOSARTAN 50 MG TAB PO SCH (21:00)
--- NOTE | 2024-02-09 21:05 | P.PN ---
Subjective Progress Note Date: 02/09/24 Principal diagnosis: Reason for follow-up is UTI and gram-negative bacteremia Patient is a 83-year-old male with a past medical history significant for hypertension hyperlipidemia reflux presenting to the hospital for evaluation of generalized weakness also have generalized shaking chills and fever, patient did have positive UA concerning for UTI also have a positive blood culture prompting this consultation. On today's evaluation that is 02/09/2024,the patient remains to be afebrile, patient is on room air not requiring supplemental oxygen and denies any shortne ss of breath no chest pain or cough.Patient denies having any nausea or vomiting, no abdominal pain and no diarrhea has been reported . Patient white count is 6.8, creatinine 0.4 blood and urine culture with gram- negative bacilli ultrasound negative for any obstructive uropathy Objective - Vital Signs Vital signs: Vital Signs Temp 97.5 F L 02/09/24 01:58 Pulse 73 02/09/24 01:58 Resp 18 02/09/24 01:58 BP 164/77 02/09/24 01:58 Pulse Ox 96 02/09/24 01:58 FiO2 Intake & Output 02/08/24 02/09/24 02/09/24 18:59 06:59 18:59 Intake Total 1620 Output Total 1375 1050 Balance 245 -1050 Intake: Oral 1620 Output: Urine 1375 1050 Other: Voiding Method Urinal Urinal Diaper Diaper # Voids 1 0 # Bowel Movements 1 0 - Exam GENERAL DESCRIPTION: An elderly male lying in bed in no distress RESPIRATORY SYSTEM: Unlabored breathing , decreased breath sounds at bases HEART: S1 S2 regular rate and rhythm , ABDOMEN: Soft , no tenderness EXTREMITIES: No edema feet Exam completed with the help of PROFESSOR OF MUSICOLOGY - Labs CBC & Chem 7: 02/09/24 06:46 02/09/24 06:46 Labs: Abnormal Lab Results - Last 24 Hours (Table) 02/08/24 02/08/24 02/09/24 Range/Units 06:52 13:07 06:46 RBC 3.75 L (4.30-5.90) m/uL Hgb 11.6 L (13.0-17.5) gm/dL Hct 35.5 L (39.0-53.0) % Sodium 129 L (137-145) mmol/L Creatinine 0.34 L (0.66-1.25) mg/dL Calcium 8.2 L (8.4-10.2) mg/dL Total Protein 5.8 L (6.3-8.2) g/dL Albumin 3.2 L (3.5-5.0) g/dL Urine Osmolality 287 L (400-1100) mOsm/kg Microbiology - Last 24 Hours (Table) 02/07/24 01:10 Blood Culture - Preliminary Blood 02/07/24 02:00 Urine Culture - Preliminary Urine,Voided Gram Neg Bacilli Assessment and Plan (1) Gram-negative bacteremia Current Visit: Yes Status: Acute Code(s): R78.81 - BACTEREMIA SNOMED Code(s): 082650318191 (2) UTI (urinary tract infection) Current Visit: Yes Status: Acute Code(s): N39.0 - URINARY TRACT INFECTION, SITE NOT SPECIFIED SNOMED Code(s): 93532183 Plan: 1patient presented to hospital with weakness rigors and chills did have urinary symptoms concerning for symptomatic kidney tract infection likely from enteric gram-negative pathogen. 2patient with gram-negative bacteremia source is likely urinary will need to rule out obstructive uropathy on an abscess. 3ultrasound of the kidney and bladder area did not show any structural normality. 4patient to continue with Rocephin 2 g daily while waiting for the culture to finalize. Dictation was produced using [employer] dictation software. please excuse any grammatical, word or spelling errors. Time with Patient: Less than 30
[2024-02-10 08:22] LABS: African American GFR (CKD) >90 (>60 ml/min/1.73 sqM); Anion Gap 6 mmol/L; Blood Urea Nitrogen 14 mg/dL (9-20); Calcium 8.5 mg/dL (8.4-10.2); Carbon Dioxide 26 mmol/L (22-30); Chloride 95 mmol/L (98-107); Glucose 106 mg/dL (74-99); Non-African American GFR(CKD) >90 (>60 ml/min/1.73 sqM); Sodium 127 mmol/L (137-145)
[2024-02-10] MEDS: LOSARTAN 50 MG TAB PO SCH (09:04)
--- NOTE | 2024-02-10 10:58 | P.PN ---
Subjective Patient is seen in follow-up for electrolyte imbalance. Sodium level 127 today. Potassium level normal. Tolerating oral intake. No vomiting. Vital signs are stable. General: No acute distress. HEENT: Head exam is unremarkable. LUNGS: No audible rhonchi or wheezes. HEART: Rate and Rhythm are regular. ABDOMEN: Nontender. EXTREMITITES: No edema. Objective - Vital Signs Vital signs: Vital Signs Temp 97.5 F L 02/10/24 07:13 Pulse 65 02/10/24 07:13 Resp 18 02/10/24 07:13 BP 145/74 02/10/24 07:13 Pulse Ox 95 02/10/24 07:13 FiO2 Intake & Output 02/09/24 02/10/24 02/10/24 18:59 06:59 18:59 Intake Total 480 Output Total 1150 Balance -1150 480 Intake: Oral 480 Output: Urine 1150 Other: Voiding Method Urinal Urinal Urinal Diaper Diaper Diaper # Voids 1 2 # Bowel Movements 0 - Labs CBC & Chem 7: 02/09/24 06:46 02/10/24 07:30 Labs: Abnormal Lab Results - Last 24 Hours (Table) 02/10/24 Range/Units 07:30 Sodium 127 L (137-145) mmol/L Chloride 95 L (98-107) mmol/L Creatinine 0.36 L (0.66-1.25) mg/dL Glucose 106 H (74-99) mg/dL Microbiology - Last 24 Hours (Table) 02/07/24 00:55 Blood Culture Gram Stain - Preliminary Blood Blood Culture - Preliminary Molecular ID 02/07/24 02:00 Urine Culture - Final Urine,Voided Klebsiella pneumoniae 02/07/24 01:10 Blood Culture - Preliminary Blood Assessment and Plan Plan: Assessment: 1. Hypovolemic hyponatremia improved with IV hydration. Sodium level down to 127. 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 Urine sodium 102 and urine os molality 287. TSH normal. 2. Hypokalemia from poor intake. Magnesium normal. Replaced. Better. 3. Benign hypertension. Stable. 4. Gram-negative UTI and bacteremia on IV antibiotics. Kidney ultrasound normal. Plan: Off IV fluids. Encouraged oral intake. Maintain fluid restriction. Status post salt tabs this admission. Samsca 7.5 mg once today.
[2024-02-10] MEDS: TOLVAPTAN 15 MG TABLET PO ONE (12:11)
--- NOTE | 2024-02-10 13:24 | P.PN ---
Progress Note - Text Progress Note Date: 02/10/24 Chief Complaint: Fever chills weakness This is a pleasant 83-year-old patient, follows with Dr. Kelvin Mcnally. Chronic stable medical conditions include GERD, hyperlipidemia, hypertension. Patient has a long history of urine being uncontrolled. Yesterday is gone down to see his urologist. Apparently patient is undergoing cystoscopy. But because of scar tissue really could not get through. Patient went home later. Feels feeling okay. In the evening started really shaking shivering fevers felt cold and very weak. To the point he required his to take him to the bathroom. He was so weak that he had to be laid down on the floor. Was unable to get up. Finally decided to come in. Patient was found to elevated white count. Low sodium. Admitted. Was given IV ceftriaxone. This morning patient does feel tired. Blood pressure activities on the lower side. February 08, 2024: Feeling better. No fever no chills. Eating better. blood culture and urine have come back to be positive. Blood pressure better. Continue with IV ceftriaxone. February 09, 2024: Up in a recliner. Cultures pending. Receiving IV ceftriaxone. Eating fair. Repeat blood cultures were done this morning. Blood pressure running high. Increase Cozaar to 50 mg twice daily. Another tablet of sodium chloride given by nephrology. Add amlodipine 5 mg nightly February 10, 2024: Up in a recliner. Eating well. No fever. Cultures growing Klebsiella pneumoniae. Repeat blood culture results pending. Active Medications Acetaminophen (Acetaminophen Tab 325 Mg Tab) 650 mg PO Q6HR PRN PRN Reason: Mild Pain or Fever > 100.5 Alprazolam (Alprazolam 0.25 Mg Tab) 0.25 mg PO Q6HR PRN PRN Reason: Anxiety Amlodipine Besylate (Amlodipine 5 Mg Tab) 5 mg PO HS [facility] Last Admin: 02/09/24 20:14 Dose: 5 mg Aspirin (Aspirin 81 Mg) 81 mg PO DAILY [facility] Last Admin: 02/10/24 09:04 Dose: 81 mg Atorvastatin Calcium (Atorvastatin 10 Mg Tab) 10 mg PO DAILY [facility] Last Admin: 02/10/24 09:04 Dose: 10 mg Calcium Carbonate/Glycine (Calcium Carbonate 500 Mg Chewable) 1,000 mg PO Q4HR PRN PRN Reason: Dyspepsia Duloxetine HCl (Duloxetine Hcl 60 Mg Capsule.Dr) 60 mg PO DAILY [facility] Last Admin: 02/10/24 09:04 Dose: 60 mg Famotidine (Famotidine 20 Mg Tab) 20 mg PO BID [facility] Last Admin: 02/10/24 09:04 Dose: 20 mg Ceftriaxone Sodium 2 gm/ (Sodium Chloride) 50 mls @ 100 mls/hr IVPB Q24HR [facility] Last Admin: 02/10/24 09:03 Dose: 100 mls/hr Ketotifen Fumarate (Ketotifen 0.025% Ophth Drops 5 Ml Btl) 1 drops BOTH EYES BID@1100,1900 [facility] Last Admin: 02/10/24 12:10 Dose: 1 drops Lactulose (Lactulose 20 Gm/30 Ml Cup) 20 gm PO DAILY PRN PRN Reason: Constipation Losartan Potassium (Losartan 50 Mg Tab) 100 mg PO DAILY [facility] Last Admin: 02/10/24 09:04 Dose: 100 mg Melatonin (Melatonin 3 Mg Tablet) 3 mg PO HS PRN PRN Reason: Insomnia Naloxone HCl (Naloxone 0.4 Mg/Ml 1 Ml Vial) 0.2 mg IV Q2M PRN PRN Reason: Opioid Reversal Ondansetron HCl (Ondansetron 4 Mg/2 Ml Vial) 4 mg IVP Q8HR PRN PRN Reason: Nausea And Vomiting Pantoprazole Sodium (Pantoprazole 40 Mg Tablet) 40 mg PO DAILY [facility] Last Admin: 02/10/24 09:04 Dose: 40 mg Tamsulosin HCl (Tamsulosin 0.4 Mg Cap.Er.24h) 0.4 mg PO DAILY [facility] Last Admin: 02/10/24 09:04 Dose: 0.4 mg Social history: No smoking. No alcohol. Lives with his Lei. At [facility]. Does use a cane at home. When he goes outside he does use a walker's. Physical examination: VITAL SIGNS: 98.1, 69, 16, 158/82, 97% room air GENERAL: Sitting up in recliner, comfortable EYES: Pupils equal. Conjunctiva obdulio l. HEENT: External appearance of nose and ears normal, oral cavity grossly normal. NECK: JVD not raised; masses not palpable. HEART: First and second heart sounds are normal; no edema. LUNGS: Respiratory rate normal; clear to auscultation. ABDOMEN: Soft, nontender, liver spleen not palpable, no masses palpable. PSYCH: Alert and oriented x3; mood and affect obdulio l. MUSCULOSKELETAL:No Clubbing/cyanosis;muscles-grossly intact INVESTIGATIONS, reviewed in the clinical context: February 10: Sodium 127 potassium 4 creatinine 0.36 February 08: White count 6.8 hemoglobin 11.6 platelets 153 sodium 129 potassium 4.3 creatinine 0.4 Urine culture [February 06] gram-negative bacilli Blood culture [February 06] Klebsiella pneumoniae February 08, 2024: White count 6.9 hemoglobin 9.5 sodium 129 potassium 4.3 creatinine 0.34 February 07, 2024: Sodium 120 potassium 4 BUN 23 creatinine 0.38 February 06, 2024: White count 10.9 hemoglobin 9.7 platelets 151 sodium 127 potassium 2.8 BUN 30 creatinine 0.41 UA: Positive for blood leukoesterase RBC WBC bacteria many EKG tracing personally reviewed by me-normal sinus rhythm. Poor R wave progression. PVC. Nonspecific T wave changes. Assessment and plan: -Sepsis. From UTI Blood culture positive for Klebsiella pneumoniae Patient had attempted procedure for cystoscopy. But the catheter could not go past through his penis. Likely DVT started having fever chills very weak to the point patient not get up had to lie down on the floor. Was given IV ceftriaxone in the ER and IV fluids. Has elevated white count. Repeat blood cultures ordered t-February 08 -Acute UTI secondary to instrumentation/cystoscopy, outpatient procedure, from gram-negative bacilli IV ceftriaxone. -Hyponatremia, with hypotension Received IV fluids. 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 Sometimes walker. -Depression Cymbalta -GERD Omeprazole -Hyperlipidemia Zocor 20 mg -Essential hypertension. Initially blood pressure was low. Cozaar to 100 mg daily. In crease amlodipine 10 mg nightly -Primary osteoarthritis Tylenol as needed -DNR Pending repeat cultures. Increase amlodipine to 10 mg nightly Past Medical History Past Medical History: GERD/Reflux, Hyperlipidemia, Hypertension History of Any Multi-Drug Resistant Organisms: None Reported Past Surgical History: Orthopedic Surgery Additional Past Surgical History / Comment(s): femur replaced with diana. Past Anesthesia/Blood Transfusion Reactions: No Reported Reaction Past Psychological History: No Psychological Hx Reported Smoking Status: Former smoker Past Alcohol Use History: None Reported
[2024-02-10] MEDS: amLODIPine 10 MG TAB PO SCH (20:24)
[2024-02-11 10:13] LABS: African American GFR (CKD) >90 (>60 ml/min/1.73 sqM); Anion Gap 7 mmol/L; Blood Urea Nitrogen 15 mg/dL (9-20); Calcium 8.9 mg/dL (8.4-10.2); Carbon Dioxide 24 mmol/L (22-30); Chloride 103 mmol/L (98-107); Glucose 101 mg/dL (74-99); Magnesium 2.1 mg/dL (1.6-2.3); Non-African American GFR(CKD) >90 (>60 ml/min/1.73 sqM); Sodium 134 mmol/L (137-145)
--- NOTE | 2024-02-11 11:51 | P.PN ---
Subjective Patient is seen in follow-up for electrolyte imbalance. Sodium level 134 today. Potassium level normal. Tolerating oral intake. No vomiting. No active complaints. Vital signs are stable. General: No acute distress. HEENT: Head exam is unremarkable. LUNGS: No audible rhonchi or wheezes. HEART: Rate and Rhythm are regular. ABDOMEN: Nontender. EXTREMITITES: No edema. Objective - Vital Signs Vital signs: Vital Signs Temp 97.8 F 02/11/24 07:23 Pulse 72 02/11/24 07:23 Resp 17 02/11/24 07:23 BP 153/51 02/11/24 07:23 Pulse Ox 96 02/11/24 07:23 FiO2 Intake & Output 02/10/24 02/11/24 02/11/24 18:59 06:59 18:59 Intake Total 960 240 240 Output Total 975 225 Balance 960 -735 15 Intake: Oral 960 240 240 Output: Urine 975 225 Other: Voiding Method Urinal Urinal Urinal Diaper Diaper Diaper # Voids 1 - Labs CBC & Chem 7: 02/09/24 06:46 02/11/24 07:04 Labs: Abnormal Lab Results - Last 24 Hours (Table) 02/11/24 Range/Units 07:04 Sodium 134 L (137-145) mmol/L Creatinine 0.36 L (0.66-1.25) mg/dL Glucose 101 H (74-99) mg/dL Microbiology - Last 24 Hours (Table) 02/09/24 06:46 Blood Culture - Preliminary Blood 02/07/24 01:10 Blood Culture - Preliminary Blood Assessment and Plan Plan: Assessment: 1. Hypovolemic hyponatremia improved with IV hydration. Sodium level 134 today. Received a dose of Samsca yesterday. 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 Urine sodium 102 and urine osmolality 287. TSH normal. 2. Hypokalemia from poor intake. Magnesium normal. Replaced. Better. 3. Benign hypertension. Stable. 4. Klebsiella UTI and bacteremia on IV antibiotics. Kidney ultrasound normal. Plan: Off IV fluids. Encouraged oral intake. Maintain fluid restriction.
--- NOTE | 2024-02-11 16:36 | P.PN ---
Subjective Progress Note Date: 02/10/24 Principal diagnosis: Reason for follow-up is UTI and gram-negative bacteremia Patient is a 83-year-old male with a past medical history significant for hypertension hyperlipidemia reflux presenting to the hospital for evaluation of generalized weakness also have generalized shaking chills and fever, patient did have positive UA concerning for UTI also have a positive blood culture prompting this consultation. On today's evaluation that is 02/10/2024, the patient continues to be afebrile, the patient is on room air and breathing comfortably, the Pt denies having any chest pain or cough, the patient denies having any abdominal pain no vomiting or any diarrhea has been reported by the nursing staff No CBC was done today creatinine 0.36 blood urine finalized with Klebsiella Objective - Vital Signs Vital signs: Vital Signs Temp 97.5 F L 02/10/24 07:13 Pulse 65 02/10/24 07:13 Resp 18 02/10/24 07:13 BP 145/74 02/10/24 07:13 Pulse Ox 95 02/10/24 07:13 FiO2 Intake & Output 02/09/24 02/10/24 02/10/24 18:59 06:59 18:59 Intake Total 480 Output Total 1150 Balance -1150 480 Intake: Oral 480 Output: Urine 1150 Other: Voiding Method Urinal Urinal Diaper Diaper # Voids 1 2 # Bowel Movements 0 - Exam GENERAL DESCRIPTION: An elderly male lying in bed in no distress RESPIRATORY SYSTEM: Unlabored breathing , decreased breath sounds at bases HEART: S1 S2 regular rate and rhythm , ABDOMEN: Soft , no tenderness EXTREMITIES: No edema feet Exam completed with the help of [employer] - Labs CBC & Chem 7: 02/09/24 06:46 02/11/24 07:04 Labs: Abnormal Lab Results - Last 24 Hours (Table) 02/09/24 02/10/24 Range/Units 06:46 07:30 Sodium 129 L 127 L (135-145) mmol/L Chloride 93 L 95 L (96-109) mmol/L Creatinine 0.4 L 0.36 L (0.6-1.5) mg/dL BUN/Creatinine Ratio 28.25 H (12.00-20.00) Ratio Glucose 106 H (74-99) mg/dL Calcium 8.6 L (8.7-10.3) mg/dL Microbiology - Last 24 Hours (Table) 02/07/24 00:55 Blood Culture Gram Stain - Preliminary Blood Blood Culture - Preliminary Molecular ID 02/07/24 02:00 Urine Culture - Final Urine,Voided Klebsiella pneumoniae 02/07/24 01:10 Blood Culture - Preliminary Blood Assessment and Plan (1) Gram-negative bacteremia Current Visit: Yes Status: Acute Code(s): R78.81 - BACTEREMIA SNOMED Code(s): 196726110325 (2) UTI (urinary tract infection) Current Visit: Yes Status: Acute Code(s): N39.0 - URINARY TRACT INFECTION, SITE NOT SPECIFIED SNOMED Code(s): 96881853 Plan: 1patient presented to hospital with weakness rigors and chills did have urinary symptoms concerning for symptomatic kidney tract infection likely from enteric gram-negative pathogen. 2patient with gram-negative bacteremia source is likely urinary will need to rule out obstructive uropathy on an abscess. 3ultrasound of the kidney and bladder area did not show any structural normality. 4patient has shown clinical improvement and we will continue with Rocephin 2 g daily while inpatient Dictation was produced using [employer] dictation software. please excuse any grammatical, word or spelling errors. Time with Patient: Less than 30
--- NOTE | 2024-02-11 16:37 | P.PN ---
Subjective Progress Note Date: 02/11/24 Principal diagnosis: Reason for follow-up is UTI and gram-negative bacteremia Patient is a 83-year-old male with a past medical history significant for hypertension hyperlipidemia reflux presenting to the hospital for evaluation of generalized weakness also have generalized shaking chills and fever, patient did have positive UA concerning for UTI also have a positive blood culture prompting this consultation. On today's evaluation that is 02/11/2024, Patient is afebrile patient is currently on room air and denies having any shortness of breath, the patient denies any chest pain or cough, the patient denies any nausea vomiting did not have any abdominal pain and no diarrhea Patient did have a creatinine of 0.3 6 repeat blood culture negative urine grew Klebsiella sensitive pathogen Objective - Vital Signs Vital signs: Vital Signs Temp 97.6 F 02/11/24 13:03 Pulse 76 02/11/24 13:03 Resp 17 02/11/24 13:03 BP 142/70 02/11/24 13:03 Pulse Ox 95 02/11/24 13:03 FiO2 Intake & Output 02/10/24 02/11/24 02/11/24 18:59 06:59 18:59 Intake Total 960 240 480 Output Total 975 350 Balance 960 -735 130 Intake: Oral 960 240 480 Output: Urine 975 350 Other: Voiding Method Urinal Urinal Urinal Diaper Diaper Diaper # Voids 1 - Exam GENERAL DESCRIPTION: An elderly male lying in bed in no distress RESPIRATORY SYSTEM: Unlabored breathing , decreased breath sounds at bases HEART: S1 S2 regular rate and rhythm , ABDOMEN: Soft , no tenderness EXTREMITIES: No edema feet Exam completed with the help of [employer] - Labs CBC & Chem 7: 02/09/24 06:46 02/11/24 07:04 Labs: Abnormal Lab Results - Last 24 Hours (Table) 02/11/24 Range/Units 07:04 Sodium 134 L (137-145) mmol/L Creatinine 0.36 L (0.66-1.25) mg/dL Glucose 101 H (74-99) mg/dL Microbiology - Last 24 Hours (Table) 02/09/24 06:46 Blood Culture - Preliminary Blood 02/07/24 01:10 Blood Culture - Preliminary Blood Assessment and Plan (1) Gram-negative bacteremia Current Visit: Yes Status: Acute Code(s): R78.81 - BACTEREMIA SNOMED Code(s): 948435304483 (2) UTI (urinary tract infection) Current Visit: Yes Status: Acute Code(s): N39.0 - URINARY TRACT INFECTION, SITE NOT SPECIFIED SNOMED Code(s): 73409289 Plan: 1patient presented to hospital with weakness rigors and chills did have urinary symptoms concerning for symptomatic kidney tract infection likely from enteric gram-negative pathogen. 2patient with gram-negative bacteremia source is likely urinary will need to rule out obstructive uropathy on an abscess. 3ultrasound of the kidney and bladder area did not show any structural normality. 4patient has shown clinical improvement culture finalized with Klebsiella that is a sensitive pathogen patient is covered with Rocephin 2 g daily to continue while inpatient will be able to finish therapy with oral Cipro x 10 days on discharge Dictation was produced using [employer] dictation software. please excuse any grammatical, word or spelling errors.
[2024-02-11] MEDS: ACETAMINOPHEN TAB 325 MG TAB PO PRN (16:46)
--- NOTE | 2024-02-11 17:51 | P.PN ---
Progress Note - Text Progress Note Date: 02/11/24 Chief Complaint: Fever chills weakness This is a pleasant 83-year-old patient, follows with Dr. Kelvin Mcnally. Chronic stable medical conditions include GERD, hyperlipidemia, hypertension. Patient has a long history of urine being uncontrolled. Yesterday is gone down to see his urologist. Apparently patient is undergoing cystoscopy. But because of scar tissue really could not get through. Patient went home later. Feels feeling okay. In the evening started really shaking shivering fevers felt cold and very weak. To the point he required his to take him to the bathroom. He was so weak that he had to be laid down on the floor. Was unable to get up. Finally decided to come in. Patient was found to elevated white count. Low sodium. Admitted. Was given IV ceftriaxone. This morning patient does feel tired. Blood pressure activities on the lower side. February 08, 2024: Feeling better. No fever no chills. Eating better. blood culture and urine have come back to be positive. Blood pressure better. Continue with IV ceftriaxone. February 09, 2024: Up in a recliner. Cultures pending. Receiving IV ceftriaxone. Eating fair. Repeat blood cultures were done this morning. Blood pressure running high. Increase Cozaar to 50 mg twice daily. Another tablet of sodium chloride given by nephrology. Add amlodipine 5 mg nightly February 10, 2024: Up in a recliner. Eating well. No fever. Cultures growing Klebsiella pneumoniae. Repeat blood culture results pending. February 11, 2024: Doing well. No fever. Tolerating diet. Repeat blood cultures pending. Discussed with the patient we want a second set to be negative before he can be discharged. Daily that Active Medications Acetaminophen (Acetaminophen Tab 325 Mg Tab) 650 mg PO Q6HR PRN PRN Reason: Mild Pain or Fever > 100.5 Last Admin: 02/11/24 16:46 Dose: 650 mg Alprazolam (Alprazolam 0.25 Mg Tab) 0.25 mg PO Q6HR PRN PRN Reason: Anxiety Amlodipine Besylate (Amlodipine 10 Mg Tab) 10 mg PO HS [facility] Last Admin: 02/10/24 20:24 Dose: 10 mg Aspirin (Aspirin 81 Mg) 81 mg PO DAILY [facility] Last Admin: 02/11/24 08:29 Dose: 81 mg Atorvastatin Calcium (Atorvastatin 10 Mg Tab) 10 mg PO DAILY [facility] Last Admin: 02/11/24 08:29 Dose: 10 mg Calcium Carbonate/Glycine (Calcium Carbonate 500 Mg Chewable) 1,000 mg PO Q4HR PRN PRN Reason: Dyspepsia Duloxetine HCl (Duloxetine Hcl 60 Mg Capsule.Dr) 60 mg PO DAILY [facility] Last Admin: 02/11/24 08:29 Dose: 60 mg Famotidine (Famotidine 20 Mg Tab) 20 mg PO BID [facility] Last Admin: 02/11/24 08:29 Dose: 20 mg Ceftriaxone Sodium 2 gm/ (Sodium Chloride) 50 mls @ 100 mls/hr IVPB Q24HR [facility] Last Admin: 02/11/24 08:29 Dose: 100 mls/hr Ketotifen Fumarate (Ketotifen 0.025% Ophth Drops 5 Ml Btl) 1 drops BOTH EYES BID@1100,1900 [facility] Last Admin: 02/11/24 11:36 Dose: 1 drops Lactulose (Lactulose 20 Gm/30 Ml Cup) 20 gm PO DAILY PRN PRN Reason: Constipation Losartan Potassium (Losartan 50 Mg Tab) 100 mg PO DAILY [facility] Last Admin: 02/11/24 08:29 Dose: 100 mg Melatonin (Melatonin 3 Mg Tablet) 3 mg PO HS PRN PRN Reason: Insomnia Naloxone HCl (Naloxone 0.4 Mg/Ml 1 Ml Vial) 0.2 mg IV Q2M PRN PRN Reason: Opioid Reversal Ondansetron HCl (Ondansetron 4 Mg/2 Ml Vial) 4 mg IVP Q8HR PRN PRN Reason: Nausea And Vomiting Pantoprazole Sodium (Pantoprazole 40 Mg Tablet) 40 mg PO DAILY [facility] Last Admin: 02/11/24 08:29 Dose: 40 mg Tamsulosin HCl (Tamsulosin 0.4 Mg Cap.Er.24h) 0.4 mg PO DAILY [facility] Last Admin: 02/11/24 08:29 Dose: 0.4 mg Social history: No smoking. No alcohol. Lives with his Lei. At [employer]. Does use a cane at home. When he goes outside he does use a walker's. Physical examination: VITAL SIGNS: 97.6, 76, 17, 142/70, 95% room air GENERAL: Resting recliner, comfortable EYES: Pupils equal. Conjunctiva obdulio l. HEENT: External appearance of nose and ears normal, oral cavity grossly normal. NECK: JVD not raised; masses not palpable. HEART: First and second heart sounds are normal; no edema. LUNGS: Respiratory rate normal; clear to auscultation. ABDOMEN: Soft, nontender, liver spleen not palpable, no masses palpable. PSYCH: Alert and oriented x3; mood and affect obdulio l. MUSCULOSKELETAL:No Clubbing/cyanosis;muscles-grossly intact INVESTIGATIONS, reviewed in the clinical context: February 10: Sodium 134 potassium 4 creatinine 0.36 February 09: Sodium 127 potassium 4 creatinine 0.36 February 08: White count 6.8 hemoglobin 11.6 platelets 153 sodium 129 potassium 4.3 creatinine 0.4 Urine culture [February 06] gram-negative bacilli Blood culture [February 06] Klebsiella pneumoniae February 08, 2024: White count 6.9 hemoglobin 9.5 sodium 129 potassium 4.3 creatinine 0.34 February 07, 2024: Sodium 120 potassium 4 BUN 23 creatinine 0.38 February 06, 2024: White count 10.9 hemoglobin 9.7 platelets 151 sodium 127 potassium 2.8 BUN 30 creatinine 0.41 UA: Positive for blood leukoesterase RBC WBC bacteria many EKG tracing personally reviewed by me-normal sinus rhythm. Poor R wave progression. PVC. Nonspecific T wave changes. Assessment and plan: -Sepsis. From UTI: Improving Blood culture positive for Klebsiella pneumoniae Patient had attempted procedure for cystoscopy. But the catheter could not go past through his penis. Likely DVT started having fever chills very weak to the point patient not get up had to lie down on the floor. Was given IV ceftriaxone in the ER and IV fluids. Has elevated white count. Repeat blood cultures ordered t-February 08 -Acute UTI secondary to instrumentation/cystoscopy, outpatient procedure, from Klebsiella pneumoniae IV ceftriaxone. -Hyponatremia, with hypotension: Better Received IV fluids. 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 Sometimes walker. -Depression Cymbalta -GERD Omeprazole -Hyperlipidemia Zocor 20 mg -Essential hypertension. Initially blood pressure was low. Cozaar to 100 mg daily. amlodipine 10 mg nightly -Primary osteoarthritis Tylenol as needed -DNR Awaiting results of repeat blood culture. Discussed with patient. Past Medical History Past Medical History: GERD/Reflux, Hyperlipidemia, Hypertension History of Any Multi-Drug Resistant Organisms: None Reported Past Surgical History: Orthopedic Surgery Additional Past Surgical History / Comment(s): femur replaced with diana. Past Anesthesia/Blood Transfusion Reactions: No Reported Reaction Past Psychological History: No Psychological Hx Reported Smoking Status: Former smoker Past Alcohol Use History: None Reported
[2024-02-11 19:15] VITALS: RESP 16
--- NOTE | 2024-02-12 16:44 | P.PN ---
Subjective Progress Note Date: 02/12/24 Principal diagnosis: Reason for follow-up is UTI and gram-negative bacteremia Patient is a 83-year-old male with a past medical history significant for hypertension hyperlipidemia reflux presenting to the hospital for evaluation of generalized weakness also have generalized shaking chills and fever, patient did have positive UA concerning for UTI also have a positive blood culture prompting this consultation. On today's evaluation that is 02/12/2024, patient has been afebrile, patient is breathing comfortably and is currently on room air, patient denies having any significant cough no chest pain shortness of breath, patient denies nausea vomiting or diarrhea and no abdominal pain, feeling better no new symptoms. No new labs has been obtained today blood culture repeat has been negative so far Objective - Vital Signs Vital signs: Vital Signs Temp 97.9 F 02/12/24 07:26 Pulse 71 02/12/24 07:26 Resp 16 02/12/24 08:00 BP 153/86 02/12/24 07:26 Pulse Ox 96 02/12/24 07:26 FiO2 Intake & Output 02/11/24 02/12/24 02/12/24 18:59 06:59 18:59 Intake Total 720 240 480 Output Total 350 Balance 370 240 480 Intake: Oral 720 240 480 Output: Urine 350 Other: Voiding Method Urinal Urinal Urinal Diaper Diaper Diaper # Voids 1 - Exam GENERAL DESCRIPTION: An elderly male lying in bed in no distress RESPIRATORY SYSTEM: Unlabored breathing , decreased breath sounds at bases HEART: S1 S2 regular rate and rhythm , ABDOMEN: Soft , no tenderness EXTREMITIES: No edema feet Exam completed with the help of [employer] OPERATOR - Labs CBC & Chem 7: 02/09/24 06:46 02/11/24 07:04 Labs: Microbiology - Last 24 Hours (Table) 02/09/24 06:46 Blood Culture - Preliminary Blood Assessment and Plan (1) Gram-negative bacteremia Current Visit: Yes Status: Acute Code(s): R78.81 - BACTEREMIA SNOMED Code(s): 843051234965 (2) UTI (urinary tract infection) Current Visit: Yes Status: Acute Code(s): N39.0 - URINARY TRACT INFECTION, SITE NOT SPECIFIED SNOMED Code(s): 42708309 Plan: 1patient presented to hospital with weakness rigors and chills did have urinary symptoms concerning for symptomatic kidney tract infection likely from enteric gram-negative pathogen. 2patient with gram-negative bacteremia source is likely urinary will need to rule out obstructive uropathy on an abscess. 3ultrasound of the kidney and bladder area did not show any structural normality. 4patient has shown clinical improvement culture finalized with Klebsiella that is a sensitive pathogen patient to continue with Rocephin 2 g dailywhile inpatient, plan is to finish therapy with oral Cipro x 10 days on discharge discussed with admitting team Dictation was produced using [employer] dictation software. please excuse any grammatical, word or spelling errors. Time with Patient: Less than 30
--- NOTE | 2024-02-12 16:53 | P.PN ---
Progress Note - Text Progress Note Date: 02/12/24 Chief Complaint: Fever chills weakness This is a pleasant 83-year-old patient, follows with Dr. Kelvin Mcnally. Chronic stable medical conditions include GERD, hyperlipidemia, hypertension. Patient has a long history of urine being uncontrolled. Yesterday is gone down to see his urologist. Apparently patient is undergoing cystoscopy. But because of scar tissue really could not get through. Patient went home later. Feels feeling okay. In the evening started really shaking shivering fevers felt cold and very weak. To the point he required his to take him to the bathroom. He was so weak that he had to be laid down on the floor. Was unable to get up. Finally decided to come in. Patient was found to elevated white count. Low sodium. Admitted. Was given IV ceftriaxone. This morning patient does feel tired. Blood pressure activities on the lower side. February 08, 2024: Feeling better. No fever no chills. Eating better. blood culture and urine have come back to be positive. Blood pressure better. Continue with IV ceftriaxone. February 09, 2024: Up in a recliner. Cultures pending. Receiving IV ceftriaxone. Eating fair. Repeat blood cultures were done this morning. Blood pressure running high. Increase Cozaar to 50 mg twice daily. Another tablet of sodium chloride given by nephrology. Add amlodipine 5 mg nightly February 10, 2024: Up in a recliner. Eating well. No fever. Cultures growing Klebsiella pneumoniae. Repeat blood culture results pending. February 11, 2024: Doing well. No fever. Tolerating diet. Repeat blood cultures pending. Discussed with the patient we want a second set to be negative before he can be discharged. February 12, 2024: No fever. Repeat blood culture still pending. Remains on IV ceftriaxone. Otherwise doing well. Hopefully can be discharged tomorrow morning. On ciprofloxacin. Active Medications Acetaminophen (Acetaminophen Tab 325 Mg Tab) 650 mg PO Q6HR PRN PRN Reason: Mild Pain or Fever > 100.5 Last Admin: 02/11/24 16:46 Dose: 650 mg Alprazolam (Alprazolam 0.25 Mg Tab) 0.25 mg PO Q6HR PRN PRN Reason: Anxiety Amlodipine Besylate (Amlodipine 10 Mg Tab) 10 mg PO HS [facility] Last Admin: 02/11/24 21:25 Dose: 10 mg Aspirin (Aspirin 81 Mg) 81 mg PO DAILY [facility] Last Admin: 02/12/24 09:01 Dose: 81 mg Atorvastatin Calcium (Atorvastatin 10 Mg Tab) 10 mg PO DAILY [facility] Last Admin: 02/12/24 09:00 Dose: 10 mg Calcium Carbonate/Glycine (Calcium Carbonate 500 Mg Chewable) 1,000 mg PO Q4HR PRN PRN Reason: Dyspepsia Duloxetine HCl (Duloxetine Hcl 60 Mg Capsule.Dr) 60 mg PO DAILY [facility] Last Admin: 02/12/24 09:01 Dose: 60 mg Famotidine (Famotidine 20 Mg Tab) 20 mg PO BID [facility] Last Admin: 02/12/24 09:01 Dose: 20 mg Ceftriaxone Sodium 2 gm/ (Sodium Chloride) 50 mls @ 100 mls/hr IVPB Q24HR [facility] Last Admin: 02/12/24 09:01 Dose: 100 mls/hr Ketotifen Fumarate (Ketotifen 0.025% Ophth Drops 5 Ml Btl) 1 drops BOTH EYES BID@1100,1900 [facility] Last Admin: 02/12/24 12:03 Dose: 1 drops Lactulose (Lactulose 20 Gm/30 Ml Cup) 20 gm PO DAILY PRN PRN Reason: Constipation Losartan Potassium (Losartan 50 Mg Tab) 100 mg PO DAILY [facility] Last Admin: 02/12/24 09:00 Dose: 100 mg Melatonin (Melatonin 3 Mg Tablet) 3 mg PO HS PRN PRN Reason: Insomnia Naloxone HCl (Naloxone 0.4 Mg/Ml 1 Ml Vial) 0.2 mg IV Q2M PRN PRN Reason: Opioid Reversal Ondansetron HCl (Ondansetron 4 Mg/2 Ml Vial) 4 mg IVP Q8HR PRN PRN Reason: Nausea And Vomiting Pantoprazole Sodium (Pantoprazole 40 Mg Tablet) 40 mg PO DAILY [facility] Last Admin: 02/12/24 09:01 Dose: 40 mg Tamsulosin HCl (Tamsulosin 0.4 Mg Cap.Er.24h) 0.4 mg PO DAILY [facility] Last Admin: 02/12/24 09:01 Dose: 0.4 mg Social history: No smoking. No alcohol. Lives with his Lei. At [facility] [place]. Does use a cane at home. When he goes outside he does use a walker's. Physical examination: VITAL SIGNS: 98.7, 72, 16, 156/77, 97% room air GENERAL: Sitting in recliner, comfortable EYES: Pupils equal. Conjunctiva obdulio l. HEENT: External appearance of nose and ears normal, oral cavity grossly normal. NECK: JVD not raised; masses not palpable. HEART: First and second heart sounds are normal; no edema. LUNGS: Respiratory rate normal; clear to auscultation. ABDOMEN: Soft, nontender, liver spleen not palpable, no masses palpable. PSYCH: Alert and oriented x3; mood and affect obdulio l. MUSCULOSKELETAL:No Clubbing/cyanosis;muscles-grossly intact INVESTIGATIONS, reviewed in the clinical context: February 10: Sodium 134 potassium 4 creatinine 0.36 February 09: Sodium 127 potassium 4 creatinine 0.36 February 08: White count 6.8 hemoglobin 11.6 platelets 153 sodium 129 potassium 4.3 creatinine 0.4 Urine culture [February 06] Klebsiella pneumoniae Blood culture [February 06] Klebsiella varlicola. Blood culture [February 08]: Pending February 08, 2024: White count 6.9 hemoglobin 9.5 sodium 129 potassium 4.3 creatinine 0.34 February 07, 2024: Sodium 120 potassium 4 BUN 23 creatinine 0.38 February 06, 2024: White count 10.9 hemoglobin 9.7 platelets 151 sodium 127 potassium 2.8 BUN 30 creatinine 0.41 UA: Positive for blood leukoesterase RBC WBC bacteria many EKG tracing personally reviewed by me-normal sinus rhythm. Poor R wave progression. PVC. Nonspecific T wave changes. Assessment and plan: -Sepsis. From UTI: Improving Blood culture positive for Klebsiella variicola, repeat blood cultures from February 08 pending Patient had attempted procedure for cystoscopy. But the catheter could not go past through his penis. Likely DVT started having fever chills very weak to the point patient not get up had to lie down on the floor. Was given IV ceftriaxone in the ER and IV fluids. Has elevated white count. Repeat blood cultures ordered t-February 08 -Acute UTI secondary to instrumentation/cystoscopy, outpatient procedure, from Klebsiella pneumoniae IV ceftriaxone. -Hyponatremia, with hypotension: Better Received IV fluids. 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 Sometimes walker. -Depression Cymbalta -GERD Omeprazole -Hyperlipidemia Zocor 20 mg -Essential hypertension. Initially blood pressure was low. Cozaar to 100 mg daily. amlodipine 10 mg nightly -Primary osteoarthritis Tylenol as needed -DNR Clinically doing well. Awaiting cultures of blood from February 08. Hopefully can be discharged tomorrow. Discussed Past Medical History Past Medical History: GERD/Reflux, Hyperlipidemia, Hypertension History of Any Multi-Drug Resistant Organisms: None Reported Past Surgical History: Orthopedic Surgery Additional Past Surgical History / Comment(s): femur replaced with diana. Past Anesthesia/Blood Transfusion Reactions: No Reported Reaction Past Psychological History: No Psychological Hx Reported Smoking Status: Former smoker Past Alcohol Use History: None Reported
--- NOTE | 2024-02-12 19:21 | P.PN ---
Subjective Patient is seen for follow-up for hyponatremia. No significant complaints today. Sodium improved to 134 yesterday. Currently not on IV fluids or diuretics. Objective - Vital Signs Vital signs: Vital Signs Temp 98.7 F 02/12/24 11:33 Pulse 72 02/12/24 11:33 Resp 16 02/12/24 11:33 BP 156/77 02/12/24 11:33 Pulse Ox 97 02/12/24 11:33 FiO2 Intake & Output 02/12/24 02/12/24 02/13/24 06:59 18:59 06:59 Intake Total 240 960 Balance 240 960 Intake: Oral 240 960 Other: Voiding Method Urinal Urinal Diaper Diaper - Exam Patient is awake, comfortable, no acute distress Examination of the heart is still Lungs bilateral breath sounds are heard Examination of lower extremities shows no significant edema. - Labs CBC & Chem 7: 02/09/24 06:46 02/11/24 07:04 Labs: Microbiology - Last 24 Hours (Table) 02/09/24 06:46 Blood Culture - Preliminary Blood 02/07/24 00:55 Blood Culture Gram Stain - Final Blood Blood Culture - Final Klebsiella variicola Molecular ID 02/07/24 01:10 Blood Culture - Final Blood Assessment and Plan Assessment: 1. Hypovolemic hyponatremia improved with IV hydration. Sodium level 134 yesterday. Received a dose of Samsca on 02/10/2024. 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 Urine sodium 102 and urine osmolality 287. TSH normal. 2. Hypokalemia from poor intake. Magnesium normal. Replaced. Better. 3. Benign hypertension. Stable. 4. Klebsiella UTI and bacteremia on IV antibiotics. Kidney ultrasound normal. Plan: Continue with fluid restriction. Repeat labs in a.m. Encourage increased oral intake particularly protein.
[2024-02-13 03:20] VITALS: TEMP 98.1
[2024-02-13 08:04] VITALS: BP 176/81; PULSE 93
--- NOTE | 2024-02-13 18:30 | P.DS ---
Providers Date of admission: 02/07/24 02:34 Expected date of discharge: 02/13/24 Attending physician: Mark Rodas Consults: 02/07/24 02:34 Consult Physician Routine Consulting Provider: Koko Hugo Consult Reason/Comments: hyponatremia Do you want consulting provider notified?: Yes, Notify in am 02/08/24 11:54 Consult Physician Routine Consulting Provider: Justina Staples Consult Reason/Comments: bacteremia Do you want consulting provider notified?: Yes Primary care physician: Kelvin Noelkas [facility] Course: Chief Complaint: Fever chills weakness This is a pleasant 83-year-old patient, follows with Dr. Kelvin Mcnally. Chronic stable medical conditions include GERD, hyperlipidemia, hypertension. Patient has a long history of urine being uncontrolled. Yesterday is gone down to see his urologist. Apparently patient is undergoing cystoscopy. But because of scar tissue really could not get through. Patient went home later. Feels feeling okay. In the evening started really shaking shivering fevers felt cold and very weak. To the point he required his to take him to the bathroom. He was so weak that he had to be laid down on the floor. Was unable to get up. Finally decided to come in. Patient was found to elevated white count. Low sodium. Admitted. Was given IV ceftriaxone. This morning patient does feel tired. Blood pressure activities on the lower side. February 08, 2024: Feeling better. No fever no chills. Eating better. blood culture and urine have come back to be positive. Blood pressure better. Continue with IV ceftriaxone. February 09, 2024: Up in a recliner. Cultures pending. Receiving IV ceftriaxone. Eating fair. Repeat blood cultures were done this morning. Blood pressure running high. Increase Cozaar to 50 mg twice daily. Another tablet of sodium chloride given by nephrology. Add amlodipine 5 mg nightly February 10, 2024: Up in a recliner. Eating well. No fever. Cultures growing Klebsiella pneumoniae. Repeat blood culture results pending. February 11, 2024: Doing well. No fever. Tolerating diet. Repeat blood cultures pending. Discussed with the patient we want a second set to be negative before he can be discharged. February 12, 2024: No fever. Repeat blood culture still pending. Remains on IV ceftriaxone. Otherwise doing well. Hopefully can be discharged tomorrow morning. On ciprofloxacin. February 13, 2024: Doing well. Patient cleared by ID. Ceftin 500 mg twice daily for 10 days. Social history: No smoking. No alcohol. Lives with his Lei. At [employer]. Does use a cane at home. When he goes outside he does use a walker's. Physical examination: VITAL SIGNS: 98.1, 93, 16, 152 x 70, 94% room air GENERAL: Comfortable EYES: Pupils equal. Conjunctiva obdulio l. HEENT: External appearance of nose and ears normal, oral cavity grossly normal. NECK: JVD not raised; masses not palpable. HEART: First and second heart sounds are normal; no edema. LUNGS: Respiratory rate normal; clear to auscultation. ABDOMEN: Soft, nontender, liver spleen not palpable, no masses palpable. PSYCH: Alert and oriented x3; mood and affect obdulio l. MUSCULOSKELETAL:No Clubbing/cyanosis;muscles-grossly intact INVESTIGATIONS, reviewed in the clinical context: February 10: Sodium 134 potassium 4 creatinine 0.36 February 09: Sodium 127 potassium 4 creatinine 0.36 February 08: White count 6.8 hemoglobin 11.6 platelets 153 sodium 129 potassium 4.3 creatinine 0.4 Urine culture [February 06] Klebsiella pneumoniae Blood culture [February 06] Klebsiella varlicola. Blood culture [February 08]: Pending February 08, 2024: White count 6.9 hemoglobin 9.5 sodium 129 potassium 4.3 creatinine 0.34 February 07, 2024: Sodium 120 potassium 4 BUN 23 creatinine 0.38 February 06, 2024: White count 10.9 hemoglobin 9.7 platelets 151 sodium 127 potassium 2.8 BUN 30 creatinine 0.41 UA: Positive for blood leukoesterase RBC WBC bacteria many EKG tracing personally reviewed by me-normal sinus rhythm. Poor R wave progression. PVC. Nonspecific T wave changes. Assessment and plan: -Sepsis. From UTI: Improving Blood culture positive for Klebsiella variicola, repeat blood cultures from February 08 p done Patient had attempted procedure for cystoscopy. But the catheter could not go past through his penis. Likely DVT started having fever chills very weak to the point patient not get up had to lie down on the floor. Was given IV ceftriaxone in the ER and IV fluids. Has elevated white count. Repeat blood cultures ordered t-February 08 -Acute UTI secondary to instrumentation/cystoscopy, outpatient procedure, from Klebsiella pneumoniae IV ceftriaxone. Discharged on Ceftin 5 mg twice daily for 10 days -Hyponatremia, with hypotension: Better Received IV fluids. 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 Sometimes walker. -Depression Cymbalta -GERD Omeprazole -Hyperlipidemia Zocor 20 mg -Essential hypertension. Initially blood pressure was low. Cozaar to 100 mg daily. amlodipine 10 mg nightly -Primary osteoarthritis Tylenol as needed -DNR Disposition: Home Past Medical History Past Medical History: GERD/Reflux, Hyperlipidemia, Hypertension History of Any Multi-Drug Resistant Organisms: None Reported Past Surgical History: Orthopedic Surgery Additional Past Surgical History / Comment(s): femur replaced with diana. Past Anesthesia/Blood Transfusion Reactions: No Reported Reaction Past Psychological History: No Psychological Hx Reported Smoking Status: Former smoker Past Alcohol Use History: None Reported Plan - Discharge Summary Discharge Rx Participant: No New Discharge Prescriptions: New cefUROXime axetiL [Ceftin] 500 mg PO BID 10 Days #20 tab Continue Tamsulosin [Flomax] 0.4 mg PO DAILY Famotidine [Pepcid] 20 mg PO BID DULoxetine HCL [Cymbalta] 60 mg PO DAILY Aspirin 81 mg PO DAILY Simvastatin [Zocor] 20 mg PO DAILY Omeprazole 20 mg PO DAILY Olopatadine HCl [Patanol 0.1%] 1 drop BOTH EYES BID Losartan/Hydrochlorothiazide [Losartan-Hctz 100-25 mg Tab] 1 tab PO DAILY Glucosamine-Chondroitin 750-600mg 1 tab PO DAILY Changed amLODIPine [Norvasc] 10 mg PO HS #0 Discontinued guaiFENesin [Mucinex] 1,200 mg PO BID Loratadine [Claritin] 10 mg PO DAILY Ciprofloxacin HCl [Cipro] 250 mg PO DIRECTED No Action Total Restore [employer] Supplement 2 cap PO DAILY Discharge Medication List Aspirin 81 mg PO DAILY 02/07/24 [History] DULoxetine HCL [Cymbalta] 60 mg PO DAILY 02/07/24 [History] Famotidine [Pepcid] 20 mg PO BID 02/07/24 [History] Glucosamine-Chondroitin 750-600mg 1 tab PO DAILY 02/07/24 [History] Losartan/Hydrochlorothiazide [Losartan-Hctz 100-25 mg Tab] 1 tab PO DAILY 02/07/24 [History] Olopatadine HCl [Patanol 0.1%] 1 drop BOTH EYES BID 02/07/24 [History] Omeprazole 20 mg PO DAILY 02/07/24 [History] Simvastatin [Zocor] 20 mg PO DAILY 02/07/24 [History] Tamsulosin [Flomax] 0.4 mg PO DAILY 02/07/24 [History] Total Rest[employer] Supplement 2 cap PO DAILY 02/07/24 [History] amLODIPine [Norvasc] 10 mg PO HS #0 02/13/24 [Rx] cefUROXime axetiL [Ceftin] 500 mg PO BID 10 Days #20 tab 02/13/24 [Rx] Follow up Appointment(s)/Referral(s): Kelvin Mcnally MD [Primary Care Provider] - 1-2 days (Please call to make follow up appointment.) Patient Instructions/Handouts: Urinary Tract Infection in Men (DC), Hyponatremia (DC) Activity/Diet/Wound Care/Special Instructions: antibiotics per Dr Staples Diet as tolerated Activity as tolerated Check later today at pharmacy for antibiotics Discharge Disposition: HOME SELF-CARE
--- NOTE | 2024-02-14 16:52 | P.PN ---
Subjective Progress Note Date: 02/13/24 Principal diagnosis: Reason for follow-up is UTI and gram-negative bacteremia Patient is a 83-year-old male with a past medical history significant for hypertension hyperlipidemia reflux presenting to the hospital for evaluation of generalized weakness also have generalized shaking chills and fever, patient did have positive UA concerning for UTI also have a positive blood culture prompting this consultation. On today's evaluation that is 02/13/2024,the patient denies any fever or any chills, patient is breathing comfortably on room air, the patient denies chest pain shortness of breath and no significant cough, patient denies abdominal pain, no nausea vomiting or diarrhea. Patient feeling better wants to go home. No new lab has been repeated today repeat blood culture negative Objective - Vital Signs Vital signs: Vital Signs Temp 98.1 F 02/13/24 07:09 Pulse 93 02/13/24 08:40 Resp 16 02/13/24 08:40 BP 176/81 02/13/24 07:09 Pulse Ox 94 L 02/13/24 07:09 FiO2 Intake & Output 02/12/24 02/13/24 02/13/24 18:59 06:59 18:59 Intake Total 960 480 240 Output Total 500 Balance 960 -20 240 Intake: Oral 960 480 240 Output: Urine 500 Other: Voiding Method Urinal Urinal Urinal Diaper Diaper Diaper - Exam GENERAL DESCRIPTION: An elderly male lying in bed in no distress RESPIRATORY SYSTEM: Unlabored breathing , decreased breath sounds at bases HEART: S1 S2 regular rate and rhythm , ABDOMEN: Soft , no tenderness EXTREMITIES: No edema feet Exam completed with the help of [employer]ER - Labs CBC & Chem 7: 02/09/24 06:46 02/11/24 07:04 Labs: Microbiology - Last 24 Hours (Table) 02/09/24 06:46 Blood Culture - Preliminary Blood 02/07/24 00:55 Blood Culture Gram Stain - Final Blood Blood Culture - Final Klebsiella variicola Molecular ID 02/07/24 01:10 Blood Culture - Final Blood Assessment and Plan (1) Gram-negative bacteremia Status: Acute Code(s): R78.81 - BACTEREMIA SNOMED Code(s): 745974743741 (2) UTI (urinary tract infection) Status: Acute Code(s): N39.0 - URINARY TRACT INFECTION, SITE NOT SPECIFIED SNOMED Code(s): 40662266 Plan: 1patient presented to hospital with weakness rigors and chills did have urinary symptoms concerning for symptomatic kidney tract infection likely from enteric gram-negative pathogen. 2patient with gram-negative bacteremia source is likely urinary will need to rule out obstructive uropathy on an abscess. 3ultrasound of the kidney and bladder area did not show any structural normality. 4patient has shown clinical improvement culture finalized with Klebsiella that is a sensitive pathogen patient to finish therapy with oral Ceftin and Cipro could not be prescribed because of drug interaction prescription has been sent to the pharmacy questions were answered Dictation was produced using [employer] dictation software. please excuse any grammatical, word or spelling errors. Time with Patient: Less than 30
== END 2024-02-13 13:22 | disposition home or self-care (01) | DRG 698 ==
LOC: EC 23:33 → 5NMEDONC 02-07 02:34
PROVIDERS: ADMIT Hospitalist; ATTEND Hospitalist
DX: N99.89 Other postprocedural complications and disorders of genitourinary system (principal); A41.50 Gram-negative sepsis, unspecified; E87.1 Hypo-osmolality and hyponatremia; N39.0 Urinary tract infection, site not specified; I95.9 Hypotension, unspecified; F32.A Depression, unspecified; I10 Essential (primary) hypertension; E78.5 Hyperlipidemia, unspecified; E86.1 Hypovolemia; E87.6 Hypokalemia; M19.91 Primary osteoarthritis, unspecified site; K59.00 Constipation, unspecified; K21.9 Gastro-esophageal reflux disease without esophagitis; F41.9 Anxiety disorder, unspecified; G47.00 Insomnia, unspecified; R26.9 Unspecified abnormalities of gait and mobility; Z79.82 Long term (current) use of aspirin; Z79.899 Other long term (current) drug therapy; Z87.891 Personal history of nicotine dependence
CPT/HCPCS: 36415; 76770; 80048; 80053; 81001; 83605; 83735; 83930; 83935; 84300; 84443; 85025; 87040; 87077; 87086; 87186; 93005; 96365; 96366; 96367; 96375; 99285

== ENCOUNTER → 2024-06-25 | Outpatient (CLI) | payer MEDICARE ==
[2024-06-26 12:26] LABS: Alt. alternata IgE Class CLASS 0/1; Alternaria alternata IgE 0.24 kU/L (<0.10); Asperg. fumagatus IgE <0.10 kU/L (<0.10); Asperg. fumagatus IgE Class CLASS 0; Bermuda Grass IgE <0.10 kU/L (<0.10); Birch(Com.Silvr) IgE <0.10 kU/L (<0.10); Birch(Com.Silvr) IgE Class CLASS 0; Cat Epith & Dander IgE <0.10 kU/L (<0.10); Cat Epith & Dander IgE Class CLASS 0; Clad herbarum IgE <0.10 kU/L (<0.10); Clad herbarum IgE Class CLASS 0; Cockroach IgE <0.10 kU/L (<0.10); Cottonwood IgE <0.10 kU/L (<0.10); Dermato. Pteronyssinus Class CLASS 0; Dermato. Pteronyssinus IgE <0.10 kU/L (<0.10); Dermato. farinae IgE <0.10 kU/L (<0.10); Dermato. farinae IgE Class CLASS 0; Dog Dander IgE <0.10 kU/L (<0.10); Elm IgE <0.10 kU/L (<0.10); IgE (Allergen) 29.9 IU/mL (<114.0); Maple (Box Elder) IgE <0.10 kU/L (<0.10); Maple (Box Elder) IgE Class CLASS 0; Mountain Cedar IgE <0.10 kU/L (<0.10); Mountain Cedar IgE Class CLASS 0; Mouse Urine IgE Class CLASS 0; Mouse Urine Proteins,IgE <0.10 kU/L (0.10); Nettle IgE <0.10 kU/L (<0.10); Nettle IgE Class CLASS 0; Oak IgE <0.10 kU/L (<0.10); Penicillium chrysogenum IgE <0.10 kU/L (<0.10); Penicillium chrysogenum IgE Cl CLASS 0; Rough Marshelder IgE <0.10 kU/L (<0.10); Rough Marshelder IgE Class CLASS 0; Timothy Grass IgE <0.10 kU/L (<0.10); Timothy Grass IgE Class CLASS 0; White Ash IgE Class CLASS 0
== END | disposition home or self-care (01) ==
LOC: LABWHC1 09:58
PROVIDERS: ATTEND Internal Medicine Critical Care Medicine
DX: R05.3 Chronic cough (principal)
CPT/HCPCS: 36415; 82785; 86003